=== PATIENT | female | born 2000 | race Caucasian/White ===

== ENCOUNTER 2021-06-30 09:52 | Observation (INO) | payer OTHER, SELFPAY ==
[2021-06-30] VITALS (17 sets, daily range): BP systolic 105–141; BP diastolic 54–100; PULSE 71–89; RESP 15–27; TEMP 36.6–37; O2SAT 99–100; BMI 24.9
--- NOTE | ~2021-06-30 | CT_ITS ---
EXAMINATION: CT abdomen pelvis w con EXAM DATE: 06/30/2021 13:33 INDICATION: intractable vomiting, abdominal pain TECHNIQUE: Spiral CT of the abdomen and pelvis was performed following intravenous injection of 100 m L Omnipaque 350. Axial, coronal and sagittal images of the abdomen and pelvis were reviewed. The do se-length product (DLP) for this examination was 273.65 mGy-cm. The exposure was tailored according to patient size (auto mA exposure control), and iterative reconstruction (ASIR) was used as additiona l dose reduction technique. There is no prior study for comparison. FINDINGS: Mild nonspecific periportal edema. Suspect mild gallbladder wall edema without adjacent fat stranding, which could be reactive given the periportal edema. No calcified cholelithiasis and only mild gallbladder distention. Differential diagnosis for gallbladder wall edema includes interstitial edema, liver disease, acute or chronic cholecystitis. Consider correlating with liver enzymes, hepati tis panel, ultrasound of this right upper quadrant tenderness. Portal and splenic veins are patent. Kidneys enhance symmetrically. There is no hydronephrosis. T he uterus is unremarkable. The bladder is unremarkable. There is no retroperitoneal or pelvic lymp hadenopathy. The appendix is normal. The stomach and small bowel are unremarkable. There is expected amount of c olonic stool. No free intraperitoneal gas. The heart is normal in size. There are no pericardial or pleural effusions. The lung bases are unremarkable. The bones are unremarkable. IMPRESSION: Mild periportal and gallbladder wall edema. Clinical correlation. Reviewed, dictated and finalized at location B.
--- NOTE | ~2021-06-30 | US_ITS ---
EXAMINATION: US abdomen limited DATE: 06/30/2021 14:26 INDICATION: Nausea. Gallbladder edema. TECHNIQUE: Multiple grayscale and Doppler ultrasound images of the abdomen were obtained. COMPARISON: CT abdomen and pelvis 06/30/2021 FINDINGS: The visualized portions of the head and body of the fingers are normal. The liver is normal without focal lesion. There is normal flow in main portal vein. The gallbladder is contracted. Gallb ladder wall thickening is noted. No gallstones or sonographic Campos sign. The common duct is normal and measures 2 mm. IMPRESSION: 1. Gallbladder wall thickening, likely interstitial edema. Reviewed, dictated and finalized at location A.
[2021-06-30] MEDS: SODIUM CHLORIDE 0.9% IV 1,000 ML 999 ML IV CONT ×2 (10:07→18:14)
[2021-06-30] MEDS: ONDANSETRON INJ 4 MG/2 ML VIAL IV PUSH ×2 (10:07→20:18)
[2021-06-30] MEDS: PANTOPRAZOLE SODIUM IV 40 MG VIAL IV PUSH (10:07)
[2021-06-30 10:15] LABS: Basophils Absolute Auto 0.2 K/mm3 (0.0-0.1); Basophils Percent Auto 1.3 % (0.2-1.2); Eosinophils Absolute Auto 1.3 K/mm3 (0-0.3); Eosinophils Percent Auto 11.2 % (0-4.4); Hematocrit 38.6 % (37.0-47.0); Hemoglobin 12.7 g/dL (12.0-15.0); Immature Granulocyte Absolute 0.03 K/mm3 (0.00-0.031); Immature Granulocyte Percent A 0.3 % (0-0.5); Lymphocytes Absolute Auto 2.52 K/mm3 (0.9-3.2); Lymphocytes Percent Auto 22.5 % (18.3-44.2); Mean Corpuscular HGB Conc 32.9 g/dl (32-36); Mean Corpuscular Hemoglobin 28.5 pg (26-34); Mean Corpuscular Volume 86.5 fl (80-100); Mean Platelet Volume 10.8 fl (7.4-10.4); Monocytes Absolute Auto 0.5 K/mm3 (0.1-0.6); Monocytes Percent Auto 4.6 % (2.6-8.5); Neutrophils Absolute Auto 6.7 K/mm3 (1.3-6.7); Neutrophils Percent Auto 60.1 % (45.5-73.1); Platelet Count Result 337 k/mm3 (150-375); Red Blood Count 4.46 M/mm3 (4.2-5.4); Red Cell Distribution Width 13.5 % (11.5-14.5); White Blood Count 11.2 K/mm3 (4.5-10.0)
[2021-06-30 10:16] LABS: Bilirubin Urine 1+ (Negative); Color Urine Yellow (Yellow); Glucose Urine UA Negative (Negative); Ketones Urine Trace mg/dL (Negative); Leukocyte Esterase Ur Negative LEU/UL (Negative); Nitrate Urine Negative (Negative); Protein Urine 1+ mg/dL (Negative); pH Urine >=9.0 (5.0-9.0)
[2021-06-30 10:17] LABS: Add Urine Microscopic? YES; Appearance Urine Sl Cloudy (Clear); Blood Urine Trace-Intact (Negative)
--- NOTE | 2021-06-30 10:30 | ED.NAVMDI ---
HPI - Nausea/Vomiting/Diarrhea General Chief complaint: Nausea/Vomiting/Diarrhea Stated complaint: nausea Time Seen by Provider: 06/30/21 09:56 Source: patient and RN notes reviewed Mode of arrival: ambulatory Limitations: no limitations History of Present Illness HPI Narrative: THis is a 21 year old female who presents for evaluation of nausea, vomiting, and diarrhea. Patient states this morning she started her menstrual cycle. She states when she starts she will develop diarrhea and vomiting. This morning she developed abdominal cramping with diarrhea. She soon after developed nausea and vomiting. She has been unable keep any fluids down. Related Data Home Medications Medication Instructions Recorded Confirmed No Home Medications 06/30/21 06/30/21 Allergies Allergy/AdvReac Type Severity Reaction Status Date / Time amoxicillin [From Augmentin] Allergy Hives Verified 06/30/21 10:05 clavulanic acid Allergy Hives Verified 06/30/21 10:05 [From Augmentin] Review of Systems Review of Systems: All systems reviewed & are unremarkable except as noted in HPI and below PMFSH Past Medical History Medical History (Updated 06/30/21 @ 16:15 by Sachi Whitt MD) Patient denies medical problems Surgical History Surgical History (Updated 06/30/21 @ 16:13 by Sachi Whitt MD) No pertinent past surgical history Family History Family History (Updated 06/30/21 @ 18:00 by Keely Rider RN) Grandparent Cerebrovascular accident Social History Social History (Updated 06/30/21 @ 16:13 by Sachi Whitt MD) Smoking status: Never smoker Second hand tobacco smoke exposure: Yes Alcohol intake: current Drinks per week: 1 Substance use type: marijuana and prescription drug Other substance usage details: naseem daily Spiritual care concerns: No Exam Const: General: no acute distress and alert Orientation/consciousness: patient oriented x3 Eyes: EOM: EOMs intact bilaterally Chest: Chest palpation & inspection: normal inspection of the chest Resp: Effort & Inspection: normal respiratory effort and no retractions Auscultation: clear to auscultation bilaterally Cardio: Rate: regular rate Rhythm: regular rhythm Heart sounds: no murmurs GI: Inspection: non-distended GI Palp: Yes Soft to palpation, Yes Tenderness to palpation present (GI) (diffuse), No Guarding due to palpation present (GI) and No Rigid due to palpation Auscultation: normal bowel sounds Skin: General skin exam: normal color Rashes: no rashes Neuro: General: patient oriented x3, moves all extremities and CN's II-XI intact bilaterally Extrem: General: normal to inspection Psych: Mental Status: mental status grossly normal Affect: normal affect Course Reevaluation(s) Reevaluation #1: Patient is still having nausea and vomiting despite multiple medications. I spoke with hospitalist service who will admit for IVF hydration and treatment. Patient is agreeable. Date: 06/30/21 Time: 16:13 Vital Signs Vital signs: Vital Signs Temperature 97.8 F 06/30/21 10:02 Pulse Rate 82 06/30/21 10:02 Respiratory Rate 20 06/30/21 10:02 Blood Pressure 140/100 H 06/30/21 10:02 Pulse Oximetry 100 06/30/21 10:02 Temperature 98.6 F 06/30/21 18:40 Pulse Rate 87 06/30/21 18:40 Respiratory Rate 16 06/30/21 18:40 Blood Pressure 141/86 H 06/30/21 18:40 Pulse Oximetry 100 06/30/21 18:40 MDM - Nausea/Vomiting/Diarrhea Lab Data Attestation: I reviewed the patient's lab results. Result diagrams: 06/30/21 10:07 06/30/21 10:06 Labs: Lab Results 06/30/21 06/30/21 06/30/21 Range/Units 10:06 10:07 10:07 WBC 11.2 H (4.5-10.0) K/mm3 RBC 4.46 (4.2-5.4) M/mm3 Hgb 12.7 (12.0-15.0) g/dL Hct 38.6 (37.0-47.0) % MCV 86.5 (80-100) fl MCH 28.5 (26-34) pg MCHC 32.9 (32-36) g/dl RDW 13.5 (11.5-14.5) % Plt Count 337 (150-375) k/mm3
[2021-06-30 10:31] LABS: Mucus Urine Heavy /lpf; Squamous Epithelial Cell Urine Few /hpf (Few); WBC Urine 0-3 /hpf
[2021-06-30 10:31] LABS: Alanine Aminotransferase 18 U/L (4-35); Albumin Level 5.1 g/dL (3.5-5.1); Alkaline Phosphatase 67 U/L (38-126); Anion Gap 13 mmol/L (8-16); Aspartate Amino Transferase 28 U/L (14-36); Bilirubin,Total 0.6 mg/dL (0.2-1.3); Blood Urea Nitrogen 10 mg/dL (7-17); Calcium 9.4 mg/dL (8.4-10.2); Carbon Dioxide 19 mmol/L (22-30); Chloride 107 mmol/L (98-107); Estimated CRCL calculation 88 ml/min; Estimated Glomerular Filt Rate > 60; Glucose 142 mg/dL (65-110); Lipase 82 U/L (23-300); Potassium 3.3 mmol/L (3.4-5.0); Sodium 139 mmol/L (137-145)
--- NOTE | 2021-06-30 11:20 | PC.NURSE ---
pt continues to c/o abd pain and nausea.
[2021-06-30] MEDS: METOCLOPRAMIDE HCL INJ 10 MG/2 ML VIAL IV PUSH (11:24)
[2021-06-30] MEDS: PROMETHAZINE HCL 25 MG/ML AMPUL 12.5 MG IV PUSH ×2 (12:16→13:38)
--- NOTE | 2021-06-30 15:15 | PM.IMHP ---
H&P: HPI History of Present Illness Date/Time: 06/30/21 15:15 Chief Complaint: Nausea, vomiting, diarrhea. Narrative: This is a 21-year-old female without significant medical history presented to the emergency department via private vehicle for evaluation of nausea, vomiting, and diarrhea. She started her menstrual cycle this morning and had mild abdominal cramping upon waking. Shortly thereafter she began to feel nauseated and she has had intractable vomiting since that time. She also reports having two loose stools this morning which is not unusual for her when she starts her cycle. She describes nonbloody emesis that is yellow in color and very bitter to taste. Unfortunately she continues to vomit and have dry heaves by receiving aggressive IV fluid rehydration and several different antiemetics in the ER, and she is being admitted for further care. With further questioning she does admit to having similar symptoms in the past requiring hospitalization. She smokes marijuana daily and she has been told previously that these episodes may be related to her marijuana use. Currently she feels weak and dehydrated and reports feeling anxious. She denies fever, chills, sweats, sick contacts, cold and flu symptoms, hematemesis, melena, and hematochezia. She has no history of GERD, peptic ulcers, gallbladder disease, or pancreatitis. Review of Systems Review of Systems: Twelve systems were reviewed and are negative except for as per HPI. [facility]LY [facility] Past Medical History Medical History Patient denies medical problems Surgical History Surgical History No pertinent past surgical history Family History Family History Grandparent Cerebrovascular accident Social History Social History (Updated 06/30/21 @ 22:00 by Kourtney Jeronimo PA-C) Social History: Surrogate decision maker: Sonja Gomez, grandmother. Code status: Full code. Smoking status: Never smoker Second hand tobacco smoke exposure: Yes Alcohol intake: current Drinks per week: 1 Substance use type: marijuana Other substance usage details: Marijuana daily. Additional living arrangements comments: The patient lives with her boyfriend and his family in [place]. 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 Spiritual care concerns: No Meds Home Medications and Allergies Home Medications Medication Instructions Recorded Confirmed Type No Home Medications 06/30/21 06/30/21 History Allergies Allergy/AdvReac Type Severity Reaction Status Date / Time amoxicillin [From Augmentin] Allergy Hives Verified 06/30/21 10:05 clavulanic acid Allergy Hives Verified 06/30/21 10:05 [From Augmentin] Vital Signs Vital Signs - 24 hr 06/30/21 10:02 06/30/21 11:00 06/30/21 13:39 Temperature 97.8 F Pulse Rate 82 71 86 Respiratory Rate 20 16 16 Blood Pressure 140/100 H 105/54 L 123/70 Pulse Oximetry 100 06/30/21 16:10 06/30/21 16:11 06/30/21 16:15 Temperature Pulse Rate 85 87 89 Respiratory Rate 24 H 18 23 H Blood Pressure 130/72 Pulse Oximetry 06/30/21 16:16 06/30/21 16:30 06/30/21 16:31 Temperature Pulse Rate 84 78 74 Respiratory Rate 15 24 H 19 Blood Pressure 119/71 132/70 Pulse Oximetry 06/30/21 16:45 06/30/21 17:00 06/30/21 17:23 Temperature Pulse Rate 82 76 83 Respiratory Rate 27 H 22 H 17 Blood Pressure Pulse Oximetry 06/30/21 17:38 06/30/21 18:40 06/30/21 20:00 Temperature 98.6 F Pulse Rate 76 87 87 Respiratory Rate 16 16 16 Blood Pressure 124/75 141/86 H Pulse Oximetry 100 100 06/30/21 20:26 Temperature Pulse Rate Respiratory Rate Blood Pressure Pulse Oximetry 99 Exam Narrative: General: Mildly ill-appearing female lying in bed. Weight: 68 kg. BMI: 2
--- NOTE | 2021-06-30 15:45 | PC.NURSE ---
pt able to tolerate ice chips
--- NOTE | 2021-06-30 17:45 | PC.NURSE ---
This patient, Kailyn Vinson, was admitted to Medical Room 251-01. Patient/family oriented to hospital policies and general routines including ID bracelet, bed and alarms, visiting hours, pain management, procedures, bathroom and other care routines, personal items, smoking policy, room service/diet, and visiting hours. Information on how to activate the Rapid Response Team has been discussed. Patient/Family are encouraged to report perceived risks to care and to ask questions if they do not understand what they are told or what they should do.
[2021-06-30] MEDS: SODIUM CHLORIDE 0.9% IV 1,000 ML 125 ML IV CONT (20:17)
[2021-06-30 21:59] LABS: Hepatitis B Surface Antigen Negative (Negative)
[2021-06-30 22:05] LABS: HAV RESULT Negative (Negative); Hepatitis B Core IgM Result Negative (Negative)
[2021-06-30 22:17] LABS: Hepatitis C Virus Antibody Negative (Negative)
[2021-06-30 22:25] LABS: Anion Gap 10 mmol/L (8-16); Blood Urea Nitrogen 7 mg/dL (7-17); Calcium 8.8 mg/dL (8.4-10.2); Carbon Dioxide 20 mmol/L (22-30); Chloride 108 mmol/L (98-107); Estimated CRCL calculation 119 ml/min; Estimated Glomerular Filt Rate > 60; Glucose 126 mg/dL (65-110); Magnesium 1.5 mg/dL (1.6-2.3); Potassium 3.7 mmol/L (3.4-5.0); Sodium 138 mmol/L (137-145)
[2021-06-30 23:01] LABS: Hemoglobin A1C 5.1 % (<5.7)
[2021-07-01] MEDS: MAGNESIUM SULF 2 GM/WATER 50ML 2 GM/50 ML BAG IVPB (01:10)
[2021-07-01] MEDS: LACTATED RINGERS 1,000 ML 100 ML IV CONT (01:11)
[2021-07-01] MEDS: ONDANSETRON INJ 4 MG/2 ML VIAL IV PUSH (02:22)
[2021-07-01 05:42] LABS: Basophils Percent Auto 0.3 % (0.2-1.2); Hematocrit 33.5 % (37.0-47.0); Hemoglobin 11.2 g/dL (12.0-15.0); Immature Granulocyte Absolute 0.09 K/mm3 (0.00-0.031); Immature Granulocyte Percent A 0.6 % (0-0.5); Lymphocytes Absolute Auto 2.18 K/mm3 (0.9-3.2); Lymphocytes Percent Auto 14.7 % (18.3-44.2); Mean Corpuscular HGB Conc 33.4 g/dl (32-36); Mean Corpuscular Hemoglobin 28.6 pg (26-34); Mean Corpuscular Volume 85.7 fl (80-100); Monocytes Absolute Auto 0.9 K/mm3 (0.1-0.6); Monocytes Percent Auto 6.3 % (2.6-8.5); Neutrophils Absolute Auto 11.6 K/mm3 (1.3-6.7); Neutrophils Percent Auto 78.1 % (45.5-73.1); Platelet Count Result 292 k/mm3 (150-375); Red Blood Count 3.91 M/mm3 (4.2-5.4); Red Cell Distribution Width 13.9 % (11.5-14.5); White Blood Count 14.8 K/mm3 (4.5-10.0)
[2021-07-01 05:53] LABS: Alanine Aminotransferase 17 U/L (4-35); Albumin Level 4.3 g/dL (3.5-5.1); Alkaline Phosphatase 49 U/L (38-126); Anion Gap 10 mmol/L (8-16); Aspartate Amino Transferase 25 U/L (14-36); Bilirubin,Total 0.4 mg/dL (0.2-1.3); Blood Urea Nitrogen 6 mg/dL (7-17); Calcium 8.6 mg/dL (8.4-10.2); Carbon Dioxide 21 mmol/L (22-30); Chloride 107 mmol/L (98-107); Estimated CRCL calculation 119 ml/min; Estimated Glomerular Filt Rate > 60; Glucose 104 mg/dL (65-110); Potassium 3.8 mmol/L (3.4-5.0); Sodium 138 mmol/L (137-145)
[2021-07-01 06:00] VITALS: BP 106/66; PULSE 70; RESP 21; TEMP 36.3; O2SAT 100
[2021-07-01 06:05] VITALS: PULSE 71; RESP 21; TEMP 36.3; O2SAT 100
[2021-07-01 06:10] VITALS: PULSE 82; RESP 21; TEMP 36.2; O2SAT 100
[2021-07-01] MEDS: PANTOPRAZOLE SODIUM IV 40 MG VIAL IV PUSH (07:37)
[2021-07-01 13:07] VITALS: BMI 24.5
--- NOTE | 2021-07-01 13:39 | PCNSR ---
On 07/01/21, the student, Jessica Vernon, provided care and completed [facility] documentation on this patient. I have reviewed the student's documentation and agree with the findings.
[2021-07-01 14:36] VITALS: BP 119/64; PULSE 74; RESP 16; TEMP 36.6; O2SAT 100
--- NOTE | 2021-07-01 15:33 | PM.DS ---
DS: Admitting Diagnosis Discharge Date 07/01/2021 Admitting Diagnosis nausea and vomiting DS: Discharge Diagnosis Discharge Diagnosis (1) Intractable vomiting with nausea: Code(s): R11.2 - Nausea with vomiting, unspecified Status: Acute Assessment and Plan: Presented with persistent nausea and vomiting, did not resolve with rehydration antiemetics therefore patient was admitted. She has had prior episodes with similar presentations, may very well be related to cyclic vomiting syndrome/cannabinoid hyperemesis syndrome. Following rehydration, she had improvement and was able to advance to a bland diet. (2) Cyclic vomiting syndrome: Code(s): R11.15 - Cyclical vomiting syndrome unrelated to migraine Status: Acute Assessment and Plan: Suspected cyclic vomiting syndrome/cannabinoid hyperemesis syndrome. Patient reports she has been informed of this in the past. Recommended reduction in marijuana use. (3) Abnormal computed tomography of abdomen and pelvis: Code(s): R93.5 - Abnormal findings on diagnostic imaging of other abdominal regions, including retroperitoneum Status: Acute Assessment and Plan: Mild periportal and gallbladder wall edema; abdominal ultrasound showed gallbladder wall thickening, likely interstitial edema. She was asymptomatic with this. Reviewed case with General Surgery. At this time, no indication for any further evaluation/intervention. Discussed with the patient signs and symptoms of acute cholecystitis, informed that she should seek medical care if she experiences this. Recommended low-fat diet to help prevent trigger of any symptoms (4) Hypokalemia: Code(s): E87.6 - Hypokalemia Status: Acute Assessment and Plan: Secondary to vomiting/decreased p.o. intake. Potassium was 3.3 and was supplemented. Levels normalized. (5) Elevated blood pressure reading: Code(s): R03.0 - Elevated blood-pressure reading, without diagnosis of hypertension Status: Acute Assessment and Plan: She had an elevated blood pressure reading on presentation but subsequent blood pressures were well controlled. Likely related to anxiety DS: Summary Hospital Course Hospital Course: Date of admission: 06/30/2021 Date of discharge: 07/01/2021 Kailyn Vinson is a healthy 21 year old female who presented to the emergency department on 06/30/2021 with complaints of nausea and vomiting. She was admitted to the hospitalist service for further evaluation management. Please see above for further details. Nausea and vomiting resolved and she was able to advance her diet. She was feeling significantly improved and requested discharge home. Given her overall improvement, she was determined to no longer require inpatient care and was discharged in hemodynamically stable condition on 07/01/2021. She does not have a primary care provider, and I discussed with her the importance of establishing care and following up regarding this hospital stay. Discussed worrisome signs and symptoms for which to return. Status at Discharge Functional status at discharge: independent ambulation Overall status at discharge: patient is back to baseline Time Spent with Patient Time attestation: Total time spent providing and/or coordinating discharge services: 35 minutes Time spent: Greater than 30 minutes Exam Narrative: General: thin, well-appearing 21 year-old female, sitting up in bed eating lunch, comfortable, NARD Neuro: awake, alert and oriented x4, speech clear, no focal neuro deficits noted HEENMT: normocephalic, atraumatic, EOMI, sclerae anicteric, moist oral mucosa Respiratory: clear to auscultation bilaterally, nonlabored breathing Cardio: regular rate, regular rhythm with S1-S2 Abdomen: nondistended, normoactive bowel sounds, soft, nontender to palpation, no RUQ tenderness, Campos sign negative Extremities: no edema, erythema, or tenderne
== END 2021-07-01 15:50 | disposition home or self-care (01) ==
LOC: ANHED 16:15 → ANH2MED 16:53
PROVIDERS: Physician Assistant; Admitting Provider Family Medicine; Emergency Provider General Practice; Visit Provider Family Medicine
DX: R11.2 Nausea with vomiting, unspecified (principal); E87.6 Hypokalemia; F12.90 Cannabis use, unspecified, uncomplicated
CPT/HCPCS: 36415; 74177; 76705; 80048; 80053; 80074; 81001; 81025; 83036; 83690; 83735; 85025; 96361; 96374; 96375; 96376; 99285; C9113; G0378; G0379; J0131; J2405; J2550; J2765; J3475; J7030; J7120; Q9967

== ENCOUNTER 2021-08-05 08:23 | Emergency (ER) | payer OTHER, SELFPAY ==
[2021-08-05 08:29] VITALS: BP 106/37; PULSE 76; RESP 18; TEMP 36.2; O2SAT 99
--- NOTE | 2021-08-05 08:44 | ED.NAVMDI ---
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 Patient does not remember when the last time she had marijuana probably last night and this morning. History of similar symptoms a few weeks ago with a diagnosis of marijuana induced vomiting. She denies any fever, chills, abdominal pain, back pain, urinary symptoms Related Data Allergies Allergy/AdvReac Type Severity Reaction Status Date / Time amoxicillin [From Augmentin] Allergy Hives Verified 06/30/21 10:05 clavulanic acid Allergy Hives Verified 06/30/21 10:05 [From Augmentin] Review of Systems Review of Systems: All systems reviewed & are unremarkable except as noted in HPI and below PMFSH Past Medical History Medical History Patient denies medical problems Surgical History Surgical History No pertinent past surgical history Family History Family History Grandparent Cerebrovascular accident Social History Social History Social History: Surrogate decision maker: Sonja Gomez, grandmother. Code status: Full code. Smoking status: Never smoker Second hand tobacco smoke exposure: Yes Alcohol intake: current Drinks per week: 1 Substance use type: marijuana Other substance usage details: Marijuana daily. Additional living arrangements comments: The patient lives with her boyfriend and his family in [place]. 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 Spiritual care concerns: No Exam Narrative: General appearance: Well-developed, well-nourished, looks ill Skin: Pale Head: Normocephalic, nontraumatic Eyes: Clear conjunctiva ENT: Oropharynx normal, ears normal, nose normal Neck: Supple, nontender Chest and respiratory: Airway patent, no respiratory distress, no accessory muscle use Heart: Regular rate/rhythm Abdomen: Soft, mild tenderness of epigastric area, no guarding or rebound no organomegaly, quiet bowel sounds Vascular: Normal peripheral pulses, normal capillary refill. Musculoskeletal: Normal range of motion, nontender back Neurologic: Alert and oriented ?3, MEDICAL SOCIOLOGIST is normal as tested, no gross motor deficit Course Vital Signs Vital signs: Vital Signs Temperature 36.2 C L 08/05/21 08:29 Pulse Rate 76 08/05/21 08:29 Respiratory Rate 18 08/05/21 08:29 Blood Pressure 106/37 L 08/05/21 08:29 Pulse Oximetry 99 08/05/21 08:29 Temperature 36.2 C L 08/05/21 08:29 Pulse Rate 76 08/05/21 08:29 Respiratory Rate 18 08/05/21 08:29 Blood Pressure 106/37 L 08/05/21 08:29 Pulse Oximetry 99 08/05/21 08:29 MDM - Nausea/Vomiting/Diarrhea Lab Data Result diagrams: 08/05/21 09:02 08/05/21 09:02 Labs: Lab Results 08/05/21 08/05/21 08/05/21 Range/Units 09:02 09:02 09:13 WBC 15.4 H (4.5-10.0) K/mm3 RBC 4.66 (4.2-5.4) M/mm3 Hgb 13.2 (12.0-15.0) g/dL Hct 40.5 (37.0-47.0) % MCV 86.9 (80-100) fl MCH 28.3 (26-34) pg MCHC 32.6 (32-36) g/dl RDW 13.0 (11.5-14.5) % Plt Count 292 (150-375) k/mm3 MPV 11.7 H (7.4-10.4) fl Immature Gran % (
[2021-08-05 09:22] LABS: Appearance Urine Slightly Cloudy (Clear); Bilirubin Urine Negative (Negative); Blood Urine Negative (Negative); Color Urine Yellow (Yellow); Glucose Urine UA Negative (Negative); Ketones Urine 4+ mg/dL (Negative); Leukocyte Esterase Ur Negative LEU/UL (Negative); Nitrate Urine Negative (Negative); Protein Urine 1+ mg/dL (Negative); Urobilinogen Urine 0.2 mg/dL (<2.0); pH Urine >=9.0 (5.0-9.0)
[2021-08-05 09:28] LABS: Bacteria Urine Trace /hpf; Mucus Urine Moderate /lpf; Squamous Epithelial Cell Urine Few /hpf (Few); WBC Urine 0-3 /hpf
[2021-08-05 09:29] LABS: Add Urine Microscopic? YES
[2021-08-05 09:38] LABS: Basophils Absolute Auto 0.1 K/mm3 (0.0-0.1); Basophils Percent Auto 0.8 % (0.2-1.2); Eosinophils Percent Auto 6.4 % (0-4.4); Hematocrit 40.5 % (37.0-47.0); Hemoglobin 13.2 g/dL (12.0-15.0); Immature Granulocyte Absolute 0.13 K/mm3 (0.00-0.031); Immature Granulocyte Percent A 0.8 % (0-0.5); Lymphocytes Absolute Auto 2.38 K/mm3 (0.9-3.2); Lymphocytes Percent Auto 15.5 % (18.3-44.2); Mean Corpuscular HGB Conc 32.6 g/dl (32-36); Mean Corpuscular Hemoglobin 28.3 pg (26-34); Mean Corpuscular Volume 86.9 fl (80-100); Mean Platelet Volume 11.7 fl (7.4-10.4); Monocytes Absolute Auto 0.3 K/mm3 (0.1-0.6); Monocytes Percent Auto 2.2 % (2.6-8.5); Neutrophils Absolute Auto 11.4 K/mm3 (1.3-6.7); Neutrophils Percent Auto 74.3 % (45.5-73.1); Platelet Count Result 292 k/mm3 (150-375); Red Blood Count 4.66 M/mm3 (4.2-5.4); White Blood Count 15.4 K/mm3 (4.5-10.0)
[2021-08-05 09:48] LABS: Alanine Aminotransferase 19 U/L (6-35); Albumin Level 4.8 g/dL (3.5-5.1); Alkaline Phosphatase 69 U/L (38-126); Anion Gap 16 mmol/L (8-16); Aspartate Amino Transferase 34 U/L (14-36); Bilirubin,Total 0.2 mg/dL (0.2-1.3); Blood Urea Nitrogen 8 mg/dL (7-17); Calcium 9.5 mg/dL (8.4-10.2); Carbon Dioxide 17 mmol/L (22-30); Chloride 106 mmol/L (98-107); Estimated CRCL calculation 119 ml/min; Estimated Glomerular Filt Rate > 60; Glucose 212 mg/dL (65-110); Lipase 67 U/L (23-300); Potassium 3.1 mmol/L (3.4-5.0); Sodium 139 mmol/L (137-145)
[2021-08-05] MEDS: SODIUM CHLORIDE 0.9% IV 1,000 ML 999 ML IV CONT ×2 (10:02→11:29)
[2021-08-05] MEDS: diphenhydrAMINE HCl INJ 50 MG/ML VIAL IV PUSH (10:03)
[2021-08-05] MEDS: ONDANSETRON INJ 4 MG/2 ML VIAL IV PUSH (10:04)
[2021-08-05] MEDS: METOCLOPRAMIDE HCL INJ 10 MG/2 ML VIAL IV PUSH (10:04)
[2021-08-05] MEDS: LORazepam INJ (*CRX) 2 MG/ML VIAL 1 MG IV PUSH (11:29)
[2021-08-05 11:36] VITALS: BP 112/77; PULSE 87; RESP 18; O2SAT 99
[2021-08-05 12:59] VITALS: BP 108/68; PULSE 85; RESP 18; O2SAT 99
== END 2021-08-05 13:05 | disposition home or self-care (01) ==
PROVIDERS: Emergency Provider Emergency Medicine
DX: R11.2 Nausea with vomiting, unspecified (principal); F12.10 Cannabis abuse, uncomplicated
CPT/HCPCS: 36415; 80053; 81001; 81025; 83690; 85025; 96361; 96374; 96375; 99284; J1200; J2060; J2405; J2765; J7030

== ENCOUNTER 2021-08-07 18:05 | Emergency (ER) | payer OTHER, SELFPAY ==
[2021-08-07] VITALS (7 sets, daily range): BP systolic 122–138; BP diastolic 86–103; PULSE 68–85; RESP 10–27; TEMP 36.6; O2SAT 98–100
[2021-08-07] MEDS: SODIUM CHLORIDE 0.9% IV 1,000 ML 999 ML IV CONT (18:45)
[2021-08-07] MEDS: ONDANSETRON INJ 4 MG/2 ML VIAL IV PUSH (18:46)
[2021-08-07] MEDS: PANTOPRAZOLE SODIUM IV 40 MG VIAL IV PUSH (18:46)
--- NOTE | 2021-08-07 18:54 | ED.NAVMDI ---
HPI - Nausea/Vomiting/Diarrhea General Chief complaint: Nausea/Vomiting/Diarrhea Stated complaint: Nausea/Vomiting Due to Marijuana Time Seen by Provider: 08/07/21 18:22 Source: patient and RN notes reviewed Mode of arrival: ambulatory Limitations: no limitations History of Present Illness HPI Narrative: This is a female who presents for evaluation of nausea and vomiting. Patient states she has had similar episodes in the past and she has been diagnosed with cannabis induced hyperemesis. She was evaluated for symptoms 2 days ago. She states she did not believe marijuana was due the cause of her symptoms so she decided to smoke again yesterday. She developed nausea, vomiting and diarrhea 2 hours ago. She also reports nonradiated upper abdominal pain. She denies fever, chills. She does report feeling lightheaded. Related Data Allergies Allergy/AdvReac Type Severity Reaction Status Date / Time amoxicillin [From Augmentin] Allergy Hives Verified 08/07/21 18:49 clavulanic acid Allergy Hives Verified 08/07/21 18:49 [From Augmentin] Review of Systems Review of Systems: All systems reviewed & are unremarkable except as noted in HPI and below Constitutional: Constitutional: Denies chills and Denies fever(s) Cardiovascular: Cardiovascular: Denies chest pain Respiratory: Respiratory: Denies cough and Denies dyspnea Gastrointestinal: Gastrointestinal: Reports abdominal pain, Reports diarrhea, Reports nausea and Reports vomiting Genitourinary: Genitourinary: Denies hematuria and Denies flank pain PMFSH Past Medical History Medical History (Updated 08/07/21 @ 21:42 by Sachi Whitt MD) Cyclic vomiting syndrome Surgical History Surgical History No pertinent past surgical history Family History Family History Grandparent Cerebrovascular accident Social History Social History Social History: Surrogate decision maker: Sonja Gomez, grandmother. Code status: Full code. Smoking status: Never smoker Second hand tobacco smoke exposure: Yes Alcohol intake: current Drinks per week: 1 Substance use type: marijuana Other substance usage details: Marijuana daily. Additional living arrangements comments: The patient lives with her boyfriend and his family in [place]. 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 Spiritual care concerns: No Exam Const: General: no acute distress and alert Orientation/consciousness: patient oriented x3 Eyes: EOM: EOMs intact bilaterally Resp: Effort & Inspection: normal respiratory effort and no retractions Auscultation: clear to auscultation bilaterally Cardio: Rate: regular rate Rhythm: regular rhythm Heart sounds: no murmurs GI: GI Palp: Yes Soft to palpation, No Tenderness to palpation present (GI) and No Guarding due to palpation present (GI) Auscultation: normal bowel sounds Back/Spine/Pelvis: Back: no CVA tenderness Skin: General skin exam: normal color Rashes: no rashes Neuro: General: patient oriented x3, moves all extremities and CN's II-XI intact bilaterally Psych: Mental Status: mental status grossly normal Affect: normal affect Course Reevaluation(s) Reevaluation #1: This appears to be patient's cyclic vomiting/cannabis induced hyperemesis . She states she feels much better. She is drinking orange juice with potassium mixture. She denies nausea or vomiting. I Discussed discharge and follow up . Date: 08/07/21 Time: 21:39 Vital Signs Vital signs: Vital Signs Temperature 97.9 F 08/07/21 18:12 Pulse Rate 85 08/07/21 18:12 Respiratory Rate 19 08/07/21 18:12 Blood Pressure 138/103 H 08/07/21 18:12 Pulse Oximetry 100 08/07/21 18:12 Temperature 97.9 F 08/07/21 18:12 Pulse Rate 73 08/07/21 21:45 Respiratory Ra
[2021-08-07 19:02] LABS: Basophils Absolute Auto 0.1 K/mm3 (0.0-0.1); Eosinophils Absolute Auto 0.2 K/mm3 (0-0.3); Eosinophils Percent Auto 2.2 % (0-4.4); Hematocrit 37.5 % (37.0-47.0); Hemoglobin 12.4 g/dL (12.0-15.0); Immature Granulocyte Absolute 0.04 K/mm3 (0.00-0.031); Immature Granulocyte Percent A 0.4 % (0-0.5); Lymphocytes Absolute Auto 2.51 K/mm3 (0.9-3.2); Lymphocytes Percent Auto 23.1 % (18.3-44.2); Mean Corpuscular HGB Conc 33.1 g/dl (32-36); Mean Corpuscular Hemoglobin 28.4 pg (26-34); Mean Platelet Volume 11.7 fl (7.4-10.4); Monocytes Absolute Auto 0.5 K/mm3 (0.1-0.6); Monocytes Percent Auto 4.6 % (2.6-8.5); Neutrophils Absolute Auto 7.5 K/mm3 (1.3-6.7); Neutrophils Percent Auto 68.7 % (45.5-73.1); Platelet Count Result 261 k/mm3 (150-375); Red Blood Count 4.36 M/mm3 (4.2-5.4); White Blood Count 10.9 K/mm3 (4.5-10.0)
[2021-08-07 19:15] LABS: Appearance Urine Clear (Clear); Bilirubin Urine Negative (Negative); Blood Urine Negative (Negative); Color Urine Yellow (Yellow); Glucose Urine UA Negative (Negative); Ketones Urine 4+ mg/dL (Negative); Leukocyte Esterase Ur Negative LEU/UL (Negative); Nitrate Urine Negative (Negative); Protein Urine Negative (Negative); Specific Grav Ur 1.025 (1.001-1.035); pH Urine 7.5 (5.0-9.0)
[2021-08-07 19:29] LABS: Add Urine Microscopic? NO
[2021-08-07 19:33] LABS: Alanine Aminotransferase 21 U/L (6-35); Albumin Level 4.5 g/dL (3.5-5.1); Alkaline Phosphatase 57 U/L (38-126); Anion Gap 15 mmol/L (8-16); Aspartate Amino Transferase 29 U/L (14-36); Bilirubin,Total 0.6 mg/dL (0.2-1.3); Blood Urea Nitrogen 9 mg/dL (7-17); Calcium 9.4 mg/dL (8.4-10.2); Carbon Dioxide 19 mmol/L (22-30); Chloride 107 mmol/L (98-107); Estimated CRCL calculation 114 ml/min; Estimated Glomerular Filt Rate > 60; Glucose 122 mg/dL (65-110); Lipase 79 U/L (23-300); Sodium 141 mmol/L (137-145)
--- NOTE | 2021-08-07 19:33 | ECG_ITS ---
Measurements Intervals [place] Rate: 74 P: [place]: 0 QRS: 68 QRSD: 89 T: 12 QT: 358 QTc: 400 Interpretive Statements SINUS RHYTHM WITH SINUS ARRHYTHMIA BORDERLINE ST-T WAVE ABNORMALITY- INFERIOR LEADS BASELINE ARTIFACT- I, II, III, AVR, AVL, AVF BORDERLINE ECG Electronically Signed On 08-08-2021 7:52:21 CDT by Jose Albarran D.O.
[2021-08-07] MEDS: HALOPERIDOL LACTATE 5 MG/ML VIAL IM (20:00)
[2021-08-07] MEDS: LACTATED RINGERS 1,000 ML 999 ML IV CONT (20:50)
--- NOTE | 2021-08-07 21:07 | PC.NURSE ---
Talked to Naheed in lab at 21:08 to add on MG
[2021-08-07] MEDS: POTASSIUM CHLORIDE 20 MEQ PACKET (FOR LIQUID) 40 MEQ PO (21:10)
[2021-08-07 21:18] LABS: Magnesium 1.6 mg/dL (1.6-2.3)
== END 2021-08-07 22:21 | disposition home or self-care (01) ==
PROVIDERS: Emergency Provider General Practice
DX: R11.15 Cyclical vomiting syndrome unrelated to migraine (principal); E87.6 Hypokalemia; E86.0 Dehydration; R94.31 Abnormal electrocardiogram [ECG] [EKG]
CPT/HCPCS: 36415; 80053; 81003; 81025; 83690; 83735; 85025; 93005; 96361; 96372; 96374; 96375; 99284; A9270; C9113; J1630; J2405; J7030; J7120

== ENCOUNTER 2021-08-19 08:24 | Outpatient (CLI) | payer OTHER, SELFPAY ==
[2021-08-19 08:58] LABS: Hematocrit 41.7 % (37.0-47.0); Hemoglobin 13.4 g/dL (12.0-15.0); Mean Corpuscular HGB Conc 32.1 g/dl (32-36); Mean Corpuscular Hemoglobin 28.2 pg (26-34); Mean Corpuscular Volume 87.8 fl (80-100); Mean Platelet Volume 10.9 fl (7.4-10.4); Platelet Count Result 290 k/mm3 (150-375); Red Blood Count 4.75 M/mm3 (4.2-5.4); Red Cell Distribution Width 13.2 % (11.5-14.5); White Blood Count 7.2 K/mm3 (4.5-10.0)
[2021-08-19 09:10] LABS: Alanine Aminotransferase 14 U/L (6-35); Albumin Level 4.9 g/dL (3.5-5.1); Alkaline Phosphatase 50 U/L (38-126); Anion Gap 7 mmol/L (8-16); Aspartate Amino Transferase 24 U/L (14-36); Bilirubin,Total 0.5 mg/dL (0.2-1.3); Blood Urea Nitrogen 12 mg/dL (7-17); Calcium 9.5 mg/dL (8.4-10.2); Carbon Dioxide 28 mmol/L (22-30); Chloride 104 mmol/L (98-107); Estimated Glomerular Filt Rate > 60; Glucose 103 mg/dL (65-110); Sodium 139 mmol/L (137-145)
== END 2021-08-19 08:25 | disposition home or self-care (01) ==
LOC: ANHLAB 08:26
PROVIDERS: PCP Emergency Medicine; Visit Provider Emergency Medicine
DX: D72.829 Elevated white blood cell count, unspecified (principal); E87.6 Hypokalemia
CPT/HCPCS: 36415; 80053; 84439; 84443; 85027

== ENCOUNTER 2021-08-20 15:52 | Inpatient (IN) | payer OTHER, SELFPAY ==
[2021-08-20] VITALS (15 sets, daily range): BP systolic 127–142; BP diastolic 74–103; PULSE 92–112; RESP 14–21; TEMP 36.1–36.4; O2SAT 98–100; BMI 22.4
--- NOTE | ~2021-08-20 | NM_ITS ---
. EXAMINATION: NM hepatobiliary w pharm DATE: 08/23/2021 15:06 INDICATION: Right upper quadrant abdominal pain. COMPARISON: CT abdomen and pelvis 08/20/2021 TECHNIQUE: 4.2 mCi Tc-99m mebrofenin (Choletec) was administered intravenously. Scintigraphic images of the abdomen were obtained for one hour. Then, 1.3 mcg sincalide (Kinevac) IV was administered, an d imaging was continued for 30 minutes. FINDINGS: There is normal clearance of radiotracer from the blood pool. There is homogeneous tracer u ptake by the liver. Activity progresses to the bowel and gallbladder. Gallbladder ejection fraction (GBEF) was 70%. Note that most patients with gallbladder dysfunction have GBEF < 35%, which overlaps with the broad normal range of 10-90%. IMPRESSION: 1. Normal hepatobiliary scintigraphy. Reviewed, dictated and finalized at location A.
--- NOTE | ~2021-08-20 | XR_ITS ---
EXAM: XR abdomen NG/feed tube insert DATE: 08/22/2021 15:22 HISTORY: NG tube placed . COMPARISON: None available. FINDINGS: NG tube, tip and side port project over the stomach. Clear lung bases. Normal partially vi sualized bowel gas pattern. No organomegaly. No abnormal abdominal calcification. Regional bones and soft tissues normal for age. IMPRESSION: NG tube, in good position. Reviewed, dictated and finalized at location K. IMPRESSION: NG tube, in good position.
--- NOTE | ~2021-08-20 | US_ITS ---
EXAMINATION: US abdomen limited DATE: 08/20/2021 18:09 INDICATION: Right upper quadrant pain TECHNIQUE: Multiple grayscale and Doppler ultrasound images of the abdomen were obtained. COMPARISON: 06/30/2021 FINDINGS: The head and body of the pancreas are normal. The pancreatic tail is obscured by bowel gas. The liver is normal with normal echogenicity and echotexture. No surface nodularity. Normal hepatope bk flow in the main portal vein. The gallbladder is normal with no abnormal wall thickening, pericho lecystic fluid or stones. The normal common bile duct measures 2 mm. There was no sonographic Campos sign. IMPRESSION: 1. Normal sonographic study of the gallbladder. Reviewed, dictated and finalized at location F.
--- NOTE | ~2021-08-20 | CT_ITS ---
EXAMINATION: CT abdomen pelvis wo con DATE: 08/20/2021 18:56 INDICATION: Abdominal pain TECHNIQUE: Computed tomography (CT) of the abdomen and pelvis was performed without intravenous contr ast. The dose-length product (DLP) was 202.74 mGy-cm. Automated exposure control and iterative recons truction technique were employed. COMPARISON: 06/30/2021 FINDINGS: The lung bases are clear. The heart size is normal. The liver, spleen, pancreas, gallbladde r, and adrenal glands are normal. The kidneys are unremarkable. No pathologically enlarged abdominal or pelvic lymph nodes are identified. There is no free intraperitoneal gas or evidence of bowel obstr uction. The appendix is not definitely identified. There is mild lumbar spondylosis. IMPRESSION: 1. No CT correlate for the patient's symptoms. Reviewed, dictated and finalized at location F.
[2021-08-20 17:00] LABS: Basophils Absolute Auto 0.1 K/mm3 (0.0-0.1); Basophils Percent Auto 0.5 % (0.2-1.2); Eosinophils Percent Auto 0.1 % (0-4.4); Hematocrit 40.5 % (37.0-47.0); Hemoglobin 13.6 g/dL (12.0-15.0); Immature Granulocyte Absolute 0.07 K/mm3 (0.00-0.031); Immature Granulocyte Percent A 0.4 % (0-0.5); Lymphocytes Absolute Auto 1.25 K/mm3 (0.9-3.2); Lymphocytes Percent Auto 7.9 % (18.3-44.2); Mean Corpuscular HGB Conc 33.6 g/dl (32-36); Mean Corpuscular Hemoglobin 28.5 pg (26-34); Mean Corpuscular Volume 84.9 fl (80-100); Mean Platelet Volume 10.8 fl (7.4-10.4); Monocytes Absolute Auto 0.3 K/mm3 (0.1-0.6); Neutrophils Absolute Auto 14.2 K/mm3 (1.3-6.7); Neutrophils Percent Auto 89.1 % (45.5-73.1); Platelet Count Result 332 k/mm3 (150-375); Red Blood Count 4.77 M/mm3 (4.2-5.4); Red Cell Distribution Width 13.2 % (11.5-14.5); White Blood Count 15.9 K/mm3 (4.5-10.0)
[2021-08-20 17:21] LABS: Albumin Level 5.4 g/dL (3.5-5.1); Alkaline Phosphatase 65 U/L (38-126); Anion Gap 18 mmol/L (8-16); Aspartate Amino Transferase 42 U/L (14-36); Bilirubin,Total 0.8 mg/dL (0.2-1.3); Blood Urea Nitrogen 10 mg/dL (7-17); Calcium 9.9 mg/dL (8.4-10.2); Carbon Dioxide 15 mmol/L (22-30); Chloride 106 mmol/L (98-107); Estimated CRCL calculation 99 ml/min; Estimated Glomerular Filt Rate > 60; Glucose 158 mg/dL (65-110); Lipase 45 U/L (23-300); Potassium 3.6 mmol/L (3.4-5.0); Sodium 139 mmol/L (137-145)
[2021-08-20 17:23] LABS: Alanine Aminotransferase 25 U/L (6-35)
[2021-08-20 17:38] LABS: Appearance Urine Slightly Cloudy (Clear); Bilirubin Urine 1+ (Negative); Blood Urine 3+ (Negative); Color Urine Yellow (Yellow); Glucose Urine UA Negative (Negative); Ketones Urine 4+ mg/dL (Negative); Leukocyte Esterase Ur Negative LEU/UL (Negative); Nitrate Urine Negative (Negative); Protein Urine 3+ mg/dL (Negative); Specific Grav Ur >= 1.030 (1.001-1.035); Urobilinogen Urine 0.2 mg/dL (<2.0)
[2021-08-20 17:45] LABS: Add Urine Microscopic? YES; Mucus Urine Heavy /lpf; RBC Urine >75 /hpf (0-2); Squamous Epithelial Cell Urine Occasional /hpf (Few); WBC Urine 0-3 /hpf
--- NOTE | 2021-08-20 17:53 | PC.NURSE ---
Pt off floor to ultrasound
--- NOTE | 2021-08-20 18:20 | ED.NAVMDI ---
HPI - Nausea/Vomiting/Diarrhea General Chief complaint: Nausea/Vomiting/Diarrhea <Imani Washington PA-C - Last Filed: 08/20/21 21:10> Stated complaint: N/V <Imani Wsahington PA-C - Last Filed: 08/20/21 21:10> Time Seen by Provider: 08/20/21 17:43 <Imani Washington PA-C - Last Filed: 08/20/21 21:10> Source: patient <SAFIA Hensley Last Filed: 08/20/21 21:10> Mode of arrival: ambulatory <Imani Washington PA-C - Last Filed: 08/20/21 21:10> Limitations: no limitations <Imani Washington PA-C - Last Filed: 08/20/21 21:10> History of Present Illness HPI Narrative: This is a 21-year-old female that presents to the emergency department for nausea and vomiting present today. Associated with upper abdominal pain. The pain is constant and crampy in nature. Denies fever or diarrhea. <Imani Washington PA-C - Last Filed: 08/20/21 21:10> Related Data Allergies/Adverse reactions: Allergies Allergy/AdvReac Type Severity Reaction Status Date / Time amoxicillin [From Augmentin] Allergy Hives Verified 08/20/21 17:50 clavulanic acid Allergy Hives Verified 08/20/21 17:50 [From Augmentin] <Imani Washington PA-C - Last Filed: 08/20/21 21:10> Review of Systems Review of Systems: CONSTITUTIONAL: Denies fever GASTROINTESTINAL: Reports abdominal pain, nausea, vomiting. Denies diarrhea. GENITOURINARY: Denies dysuria <Imani Washington PA-C - Last Filed: 08/20/21 21:10> All systems reviewed & are unremarkable except as noted in HPI and below <Imani Washington PA-C - Last Filed: 08/20/21 21:10> [facility] Past Medical History Medical History: Medical History (Updated 08/20/21 @ 21:10 by Imani Washington PA-C) Cyclic vomiting syndrome <Imani Washington PA-C - Last Filed: 08/20/21 21:10> Surgical History Surgical History: Surgical History No pertinent past surgical history <Imani Washington PA-C - Last Filed: 08/20/21 21:10> Family History Family History: Family History Grandparent Cerebrovascular accident <Imani Washington PA-C - Last Filed: 08/20/21 21:10> Social History Social History: Social History Social History: Surrogate decision maker: Sonja Gomez, grandmother. Code status: Full code. Smoking status: Never smoker Second hand tobacco smoke exposure: Yes Alcohol intake: current Drinks per week: 1 Substance use type: marijuana Other substance usage details: Marijuana daily. Additional living arrangements comments: The patient lives with her boyfriend and his family in [place]. 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 Spiritual care concerns: No <Imani Washington PA-C - Last Filed: 08/20/21 21:10> Exam Narrative: GENERAL: Well-appearing, well-nourished, and in no acute distress. HEAD: Normocephalic, atraumatic. EYES: EOMI. CHEST: Clear to auscultation. No respiratory distress. No wheezes rales or rhonchi HEART: Regular rate and rhythm. No murmur heard. Normal peripheral pulses. ABDOMEN: Soft, nondistended, normal active bowel sounds. Tender to palpation in epigastrium, without guarding. No CVA tenderness EXTREMITIES: Normal range of motion. No edema. SKIN: Warm, dry, no rash. NEURO: No focal deficits. Alert and oriented x3. PSYCH: Normal mood and affect <Imani Washington PA-C - Last Filed: 08/20/21 21:10> Course SENIOR TECHNICAL WRITER/PA Physician Supervision I saw this patient and the care plan was discussed with me labs and imaging reviewed I agree with the care plan <Alen Townsend MD - Last Filed: 08/20/21 21:23> Consultations Consultation #1: Spoke with hospitalist about patient and work-up who accepts admission <Imani Washington PA-C - Last Filed: 08/20/21 21:10> Date: 08/20/21 <Imani Washington PA-C - Last Filed:
[2021-08-20] MEDS: SODIUM CHLORIDE 0.9% IV 1,000 ML 999 ML IV CONT ×2 (18:33→19:37)
[2021-08-20] MEDS: FAMOTIDINE 20 MG/2 ML VIAL IV PUSH (18:35)
[2021-08-20] MEDS: METOCLOPRAMIDE HCL INJ 10 MG/2 ML VIAL IV PUSH (18:37)
[2021-08-20] MEDS: diphenhydrAMINE HCl INJ 50 MG/ML VIAL 25 MG IV PUSH (18:39)
--- NOTE | 2021-08-20 18:41 | PC.NURSE ---
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 Not time for additional dose at this time. Will alert JANIE Diallo
--- NOTE | 2021-08-20 18:49 | PC.NURSE ---
Pt off floor to CT scan
[2021-08-20] MEDS: DICYCLOMINE HCL INJ 20 MG/2 ML VIAL IM (19:37)
[2021-08-20] MEDS: ONDANSETRON INJ 4 MG/2 ML VIAL IV PUSH (20:49)
--- NOTE | 2021-08-20 21:04 | PM.IMHP ---
H&P: HPI History of Present Illness Date/Time: 08/20/21 21:04 Chief Complaint: Nausea and vomiting Narrative: This is a 21-year-old female with past medical history significant for cyclic vomiting syndrome, patient presents today to the emergency room due to intractable nausea and vomiting for the last day or so according to patient she has been in her usual state of health prior to this she denies any fevers, rigors, chills, no diarrhea. Preliminary workup was significant for CBC with a WBC count of 15,[address] of abdomen and pelvis did not show any acute intra-abdominal abnormalities and an ultrasound of the gallbladder was normal. Patient received fluids in the emergency room however was still significantly nauseous and in discomfort also having epigastric abdominal pain. Patient is been placed in observation for further evaluation, management and treatment. Review of Systems Review of Systems: Nausea, vomiting, epigastric abdominal pain. Constitutional: Constitutional: Denies chills and Denies fever(s) Eyes: Eyes: Denies change in vision ENT: Denies dysphagia, Denies vertigo, Denies dizziness, Denies nasal congestion, Denies odynophagia and Denies disequilibrium Cardiovascular: Cardiovascular: Denies chest pain, Denies pedal edema, Denies irregular heart rhythm, Denies claudication, Denies lightheadedness, Denies radiating jaw, neck or arm pain, Denies palpitations and Denies dyspnea on exertion Respiratory: Respiratory: Denies change in phlegm color, Denies cough and Denies excessive phlegm production Gastrointestinal: Gastrointestinal: Reports abdominal pain, Denies dyspepsia, Denies heartburn, Denies diarrhea, Reports nausea and Reports vomiting Genitourinary: Genitourinary: Reports no additional female genitourinary complaints and Reports as per HPI Musculoskeletal: Musculoskeletal: Denies back pain, Denies arthralgias and Denies joint swelling Integumentary/Breasts: Skin/Breast: Denies rash Psychiatric: Psychiatric: Reports no additional psychiatric complaints and Reports as per HPI Endocrine: Endocrine: Denies cold intolerance, Denies fatigue, Denies flushing, Denies heat intolerance, Denies polyphagia, Denies polydipsia and Denies palpitations Hematologic/Lymphatic: Hematologic/Lymphatic: Reports no additional hematologic/lymphatic complaints and Reports as per HPI Allergic/Immunologic: Allergic/Immunologic: Reports no additional allergic/immunologic complaints and Reports as per HPI [facility] Past Medical History Medical History (Updated 08/21/21 @ 01:35 by Binh Bueno MD) Cyclic vomiting syndrome Surgical History Surgical History No pertinent past surgical history Family History Family History (Updated 08/20/21 @ 22:56 by Cierra Greene RN) Grandparent Heart attack Cerebrovascular accident Hypertension Social History Social History Social History: Surrogate decision maker: Sonja Gomez, grandmother. Code status: Full code. Smoking status: Never smoker Second hand tobacco smoke exposure: Yes Alcohol intake: current Drinks per week: 1 Substance use: former Substance use type: marijuana Other substance usage details: Marijuana daily. Additional living arrangements comments: The patient lives with her boyfriend and his family in [place]. 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 Spiritual care concerns: No Meds Home Medications and Allergies Home Medications Medication Instructions Recorded Confirmed Type ondansetron 4 mg disintegrating 4 mg PO Q4H 3 doses #10 tabs 08/05/21 08/20/21 Rx tablet Allergies Allergy/AdvReac Type Severity Reaction Status Date / Time amoxicillin [From Augmentin] Allergy Hives Verified 08/20/21 22:52 clavulanic acid Allergy Hives Verified 08/20/21 22:52 [From Augmentin]
[2021-08-20] MEDS: SODIUM CHLORIDE 0.9% IV 1,000 ML 125 ML IV CONT (21:40)
[2021-08-20 22:25] LABS: SARS-CoV-2 RNA PCR Negative
[2021-08-21] MEDS: ONDANSETRON INJ 4 MG/2 ML VIAL IV PUSH ×4 (02:02→21:17)
[2021-08-21 04:04] VITALS: BP 133/77; PULSE 92; RESP 20; TEMP 37.1; O2SAT 97
[2021-08-21] MEDS: SODIUM CHLORIDE 0.9% IV 1,000 ML 125 ML IV CONT ×2 (05:29→20:33)
--- NOTE | 2021-08-21 08:15 | PM.IMPN ---
Progress Note: A&P Assessment and Plan (1) Acute dehydration: Code(s): E86.0 - Dehydration Status: Acute Assessment and Plan: Place in observation IV fluids Supportive care (2) Cyclic vomiting syndrome: Code(s): R11.15 - Cyclical vomiting syndrome unrelated to migraine Status: Acute Assessment and Plan: Supportive care (3) Intractable vomiting with nausea: Code(s): R11.2 - Nausea with vomiting, unspecified Status: Acute Assessment and Plan: CT abdomen and pelvis reviewed Supportive care NPO currently (4) Abdominal pain: Code(s): R10.9 - Unspecified abdominal pain Status: Acute Assessment and Plan: CT of abdomen and pelvis with no acute intra-abdominal abnormality Right upper quadrant ultrasound with no gallbladder disease On 06/30/2021 patient had gallbladder wall thickening and imaging. Due to the patient's persistent pain will obtain HIDA scan and consult General surgery if needed Patient has leukocytosis, started cipro and flagyl. May de-escalate abx when appropriate Repeat UA Subjective Date/time seen: 08/21/21 08:15 Patient remains NPO and still has mild abdominal tenderness. Pending HIDA scan. Patient was started on Cipro and Flagyl and a repeat UA. With review previous imaging patient appeared to have a gallbladder wall thickening and has had persistent problems since June. May consider consulting General surgery pending HIDA scan results. Review of Systems Review of Systems: All systems reviewed & are unremarkable except as noted in HPI and below Exam Narrative: General: No acute distress. Mental Status: Awake, alert and oriented to person, place, and time with clear speech. Skin: Skin in warm, dry and intact without rashes or lesions. Head: Normocephalic and atraumatic. Eyes: Conjunctivae are clear without exudates or hemorrhage. Sclera is non-icteric. EOM are intact, PERRLA. Ears: The external ear and canal are non-tender and without swelling or discharge. Nose: Nasal mucosa is pink and moist. Septum midline. Nares patent bilaterally. Throat: Oral mucosa pink and moist with good dentition. Tongue midline. Neck: The neck supple without adenopathy. Trachea midline. No JVD. Cardiac: S1 and S2 regular rate and rhythm. No murmurs, gallops, or rubs auscultated. Respiratory: Chest wall symmetric, nontender and without deformity or trauma. Respirations even and unlabored. Lung sounds are clear to auscultation in all lobes bilaterally without wheezes, rhonchi, or rales. Abdominal: Abdomen soft, round and mildly-tender to palpation. Bowel sounds present and normoactive in all 4 quadrants. Spine: Neck and back with grossly normal curvature, no deformity in appearance or signs of trauma. Extremities: Upper and lower extremities atraumatic without tenderness or deformity. Full range of motion and muscle strength 5/5 to all extremities bilaterally. Neurological: Full and symmetric motor and light touch sensation bilaterally. Cranial nerves II-XII grossly intact. Objective Data Vital Signs Vital Signs: Vital Signs - 24 hr 08/20/21 16:45 08/20/21 17:47 08/20/21 17:43 Temperature 96.9 F L 97.5 F L Pulse Rate 112 H 102 H 97 Respiratory Rate 20 17 19 Blood Pressure 142/91 H 131/87 Pulse Oximetry 100 100 99 Oxygen Delivery Room Air Room Air 08/20/21 17:45 08/20/21 17:47 08/20/21 18:43 Temperature Pulse Rate 96 101 H 103 H Respiratory Rate 16 15 Blood Pressure 131/87 139/83 Pulse Oximetry 99 100 Oxygen Delivery 08/20/21 18:44 08/20/21 18:47 08/20/21 18:33 Temperature Pulse Rate 102 H 100 107 H Respiratory Rate 21 H Blood Pressure 131/100 H 134/103 H 137/81 Pulse Oximetry 100 Oxygen Delivery 08/20/21 19:01 08/20/21 19:15 08/20/21 19:30 Temperature Pulse Rate 96 92 93 Respiratory Rate 14 15 20 Blood Pressure Pulse Oximetry 98 100 100 Oxygen Delivery 08/20/21 19:45 08/20/21 21:00
[2021-08-21] MEDS: metroNIDAZOLE 500 MG/ISO 100ML 500 MG/100 ML BAG 100 MG IVPB ×2 (08:52→16:17)
[2021-08-21 09:35] LABS: Appearance Urine Clear (Clear); Bilirubin Urine Negative (Negative); Blood Urine 3+ (Negative); Color Urine Yellow (Yellow); Glucose Urine UA Negative (Negative); Ketones Urine 2+ mg/dL (Negative); Leukocyte Esterase Ur Negative LEU/UL (NEGATIVE); Nitrate Urine Negative (Negative); Protein Urine Negative (Negative); Specific Grav Ur 1.015 (1.001-1.035); Urobilinogen Urine 0.2 mg/dL (<2.0)
[2021-08-21 09:52] LABS: Bacteria Urine Trace /hpf; Squamous Epithelial Cell Urine Rare /hpf (Few); WBC Urine 0-3 /hpf (0-3)
[2021-08-21 09:54] LABS: Add Urine Microscopic? YES
[2021-08-21] MEDS: CIPROFLOXACIN 400 MG/D5W 200ML 200 ML 200 MG IVPB ×2 (10:04→17:32)
[2021-08-21 14:05] VITALS: BP 111/90; PULSE 82; RESP 16; TEMP 37.1; O2SAT 100
[2021-08-21 19:21] VITALS: BP 135/87; PULSE 76; RESP 20; TEMP 36.9; O2SAT 100
[2021-08-22] MEDS: metroNIDAZOLE 500 MG/ISO 100ML 500 MG/100 ML BAG 100 MG IVPB ×3 (00:21→17:09)
[2021-08-22] MEDS: CIPROFLOXACIN 400 MG/D5W 200ML 200 ML 200 MG IVPB ×3 (01:25→18:13)
[2021-08-22] MEDS: ONDANSETRON INJ 4 MG/2 ML VIAL IV PUSH ×4 (04:16→19:33)
[2021-08-22 04:20] VITALS: BP 125/77; PULSE 83; RESP 17; TEMP 36.4; O2SAT 98
[2021-08-22] MEDS: SODIUM CHLORIDE 0.9% IV 1,000 ML 125 ML IV CONT ×2 (04:20→18:06)
[2021-08-22 08:39] LABS: Hematocrit 32.4 % (37.0-47.0); Hemoglobin 10.9 g/dL (12.0-15.0); Mean Corpuscular HGB Conc 33.6 g/dl (32-36); Mean Corpuscular Hemoglobin 28.8 pg (26-34); Mean Corpuscular Volume 85.7 fl (80-100); Mean Platelet Volume 11.1 fl (7.4-10.4); Platelet Count Result 211 k/mm3 (150-375); Red Blood Count 3.78 M/mm3 (4.2-5.4); Red Cell Distribution Width 13.3 % (11.5-14.5)
[2021-08-22 08:51] LABS: Alanine Aminotransferase 15 U/L (6-35); Alkaline Phosphatase 41 U/L (38-126); Anion Gap 9 mmol/L (8-16); Aspartate Amino Transferase 19 U/L (14-36); Bilirubin,Total 0.4 mg/dL (0.2-1.3); Blood Urea Nitrogen 6 mg/dL (7-17); Calcium 8.1 mg/dL (8.4-10.2); Carbon Dioxide 21 mmol/L (22-30); Chloride 107 mmol/L (98-107); Estimated CRCL calculation 99 ml/min; Estimated Glomerular Filt Rate > 60; Glucose 95 mg/dL (65-110); Potassium 3.2 mmol/L (3.4-5.0); Sodium 137 mmol/L (137-145)
--- NOTE | 2021-08-22 10:04 | PM.IMPN ---
Progress Note: A&P Assessment and Plan (1) Acute dehydration: Code(s): E86.0 - Dehydration Status: Acute Assessment and Plan: Place in observation IV fluids Supportive care (2) Cyclic vomiting syndrome: Code(s): R11.15 - Cyclical vomiting syndrome unrelated to migraine Status: Acute Assessment and Plan: Supportive care (3) Intractable vomiting with nausea: Code(s): R11.2 - Nausea with vomiting, unspecified Status: Acute Assessment and Plan: CT abdomen and pelvis reviewed Supportive care NPO currently (4) Abdominal pain: Code(s): R10.9 - Unspecified abdominal pain Status: Acute Assessment and Plan: CT of abdomen and pelvis with no acute intra-abdominal abnormality Right upper quadrant ultrasound with no gallbladder disease On 06/30/2021 patient had gallbladder wall thickening and imaging. Due to the patient's persistent pain will obtain HIDA scan unable to obtain a HIDA scan. Defer further recommendations to gastroenterology. Consult Gastroenterology for further management and recommendations Patient has leukocytosis, started cipro and flagyl. May de-escalate abx when appropriate Repeat UA -WNL Obtain labs, lipase Subjective Date/time seen: 08/22/21 10:04 Interval history: Patient is alert and oriented this morning. She is nauseated and had 1 episode of emesis, nonbloody non biliary. GI was consulted this morning for further management recommendations. Unable perform HIDA scan as it does only performed on Tuesdays and . Pending further recommendations from Gastroenterology. Patient has remained NPO and continue IV antibiotics and antiemetics as well as IV pain medication. Patient currently is menstruating and reports extreme emotional stress. No acute events reported by RN during the night. Review of Systems Review of Systems: All systems reviewed & are unremarkable except as noted in HPI and below Exam Narrative: General: No acute distress. Mental Status: Awake, alert and oriented to person, place, and time with clear speech. Skin: Skin in warm, dry and intact without rashes or lesions. Head: Normocephalic and atraumatic. Eyes: Conjunctivae are clear without exudates or hemorrhage. Sclera is non-icteric. EOM are intact, PERRLA. Ears: The external ear and canal are non-tender and without swelling or discharge. Nose: Nasal mucosa is pink and moist. Septum midline. Nares patent bilaterally. Throat: Oral mucosa pink and moist with good dentition. Tongue midline. Neck: The neck supple without adenopathy. Trachea midline. No JVD. Cardiac: S1 and S2 regular rate and rhythm. No murmurs, gallops, or rubs auscultated. Respiratory: Chest wall symmetric, nontender and without deformity or trauma. Respirations even and unlabored. Lung sounds are clear to auscultation in all lobes bilaterally without wheezes, rhonchi, or rales. Abdominal: Abdomen soft, round and mildly-tender to palpation. Bowel sounds present and normoactive in all 4 quadrants. Spine: Neck and back with grossly normal curvature, no deformity in appearance or signs of trauma. Extremities: Upper and lower extremities atraumatic without tenderness or deformity. Full range of motion and muscle strength 5/5 to all extremities bilaterally. Neurological: Full and symmetric motor and light touch sensation bilaterally. Cranial nerves II-XII grossly intact. Objective Data Vital Signs Vital Signs: Vital Signs - 24 hr 08/21/21 14:05 08/21/21 19:21 08/21/21 20:00 Temperature 98.7 F 98.4 F Pulse Rate 82 76 Respiratory Rate 16 20 Blood Pressure 111/90 135/87 Pulse Oximetry 100 100 Oxygen Delivery Room Air 08/22/21 04:20 08/22/21 07:18 Temperature 97.6 F Pulse Rate 83 Respiratory Rate 17 Blood Pressure 125/77 Pulse Oximetry 98 Oxygen Delivery Room Air Intake/Output Intake/Output: Intake & Output 08/19/21 08/20/21 08/21/21 08/22/21 23:59 23:59
[2021-08-22] MEDS: fentaNYL CITRATE INJ (*CRX) 100 MCG/2 ML VIAL 12.5 MCG IV PUSH (10:37)
[2021-08-22] MEDS: KCL 20 MEQ/SW 100 ML 100 ML 50 MEQ IVPB (11:34)
[2021-08-22 12:45] LABS: Lipase 71 U/L (23-300)
[2021-08-22 14:20] VITALS: BP 136/88; PULSE 85; RESP 15; TEMP 36.6; O2SAT 100
[2021-08-22] MEDS: KETOROLAC 15 MG/ML VIAL (*BKC) IV PUSH (15:14)
[2021-08-22 19:13] VITALS: BP 135/84; PULSE 69; RESP 18; TEMP 36.4; O2SAT 100
[2021-08-22 20:00] VITALS: PULSE 69; RESP 18; O2SAT 100
[2021-08-22] MEDS: diphenhydrAMINE HCl INJ 50 MG/ML VIAL IV PUSH (21:28)
[2021-08-23] VITALS (8 sets, daily range): BP systolic 123–143; BP diastolic 79–103; PULSE 68–96; RESP 16–17; TEMP 36.8–37.1; O2SAT 97–100
[2021-08-23] MEDS: ONDANSETRON INJ 4 MG/2 ML VIAL IV PUSH ×4 (01:02→20:24)
[2021-08-23] MEDS: metroNIDAZOLE 500 MG/ISO 100ML 500 MG/100 ML BAG 100 MG IVPB (01:03)
[2021-08-23] MEDS: CIPROFLOXACIN 400 MG/D5W 200ML 200 ML 200 MG IVPB (01:03)
[2021-08-23] MEDS: SODIUM CHLORIDE 0.9% IV 1,000 ML 125 ML IV CONT ×3 (05:19→17:23)
--- NOTE | 2021-08-23 07:49 | WPDGICN ---
Assessment and Plan Assessment and plan (1) Cyclic vomiting syndrome: Code(s): R11.15 - Cyclical vomiting syndrome unrelated to migraine Status: Acute Assessment and Plan: Patient with cyclical vomiting syndrome. Appears be related to marijuana use. She should abstain from this. Plan is for EGD because of several admissions with this. Dark material in NG tube raises the question of gastric irritation. This will be evaluated by EGD. (2) Anemia: Code(s): D64.9 - Anemia, unspecified Status: Acute Assessment and Plan: Patient with mild anemia. This likely is multifactorial. EGD will be performed to exclude irritation or ulceration or gastritis within the upper GI tract. (3) Leukocytosis: Code(s): D72.829 - Elevated white blood cell count, unspecified Status: Acute Assessment and Plan: Leukocytosis noted likely reactive. Patient now on antibiotics. For unclear reasons. If no infection identified would consider holding these pending results of cultures. GI Consult Note Consult date/time: 08/23/21 07:49 Reason for consult: Nausea vomiting HPI: Anette Vinson is a 21 year old female I am asked to see at the request of the hospitalist service because of recurrent protracted nausea vomiting. Patient has been admitted to the hospital several times over the last several months. She has had recurrent nausea vomiting. She does admit to frequent marijuana use. This is previously been attributed to cyclical vomiting. Patient does get relief with hot showers. She has minimized her marijuana use but has remitted the hospital with protracted nausea vomiting. NG tube was placed yesterday because of nausea vomiting some dark coffee-ground appearance material was retrieved. Patient also noted to have leukocytosis at time of admission that has resolved. She was placed empirically on antibiotics for uncertain reasons. Patient has had a mild decline in hemoglobin. Patient feels less nausea today. Review of Systems Review of Systems: Review of systems noncontributory. [facility] Past Medical History Medical History (Updated 08/23/21 @ 07:52 by Pato Fernandez MD) Cyclic vomiting syndrome Surgical History Surgical History No pertinent past surgical history Family History Family History (Updated 08/20/21 @ 22:56 by Cierra Greene RN) Grandparent Heart attack Cerebrovascular accident Hypertension Social History Social History Social History: Surrogate decision maker: Sonja Gomez, grandmother. Code status: Full code. Smoking status: Never smoker Second hand tobacco smoke exposure: Yes Alcohol intake: current Drinks per week: 1 Substance use: former Substance use type: marijuana Other substance usage details: Marijuana daily. Additional living arrangements comments: The patient lives with her boyfriend and his family in [place]. 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 Spiritual care concerns: No Meds Home Medications and Allergies Home Medications Medication Instructions Recorded Confirmed Type ondansetron 4 mg disintegrating 4 mg PO Q4H 3 doses #10 tabs 08/05/21 08/20/21 Rx tablet Allergies Allergy/AdvReac Type Severity Reaction Status Date / Time amoxicillin [From Augmentin] Allergy Hives Verified 08/20/21 22:52 clavulanic acid Allergy Hives Verified 08/20/21 22:52 [From Augmentin] Vital Signs Vital Signs - 24 hr 08/22/21 14:20 08/22/21 19:13 08/22/21 20:00 Temperature 98 F 97.5 F L Pulse Rate 85 69 69 Respiratory Rate 15 18 18 Blood Pressure 136/88 135/84 Pulse Oximetry 100 100 100 Oxygen Delivery Room Air 08/23/21 04:09 Temperature 98.2 F Pulse Rate 73 Respiratory Rate 17 Blood Pressure 125/85 Pulse Oximetry 97 Oxygen Delivery
[2021-08-23 08:01] LABS: Basophils Percent Auto 0.5 % (0.2-1.2); Eosinophils Percent Auto 0.1 % (0-4.4); Hematocrit 35.8 % (37.0-47.0); Immature Granulocyte Absolute 0.03 K/mm3 (0.00-0.031); Immature Granulocyte Percent A 0.3 % (0-0.5); Lymphocytes Absolute Auto 1.75 K/mm3 (0.9-3.2); Lymphocytes Percent Auto 20.1 % (18.3-44.2); Mean Corpuscular HGB Conc 33.5 g/dl (32-36); Mean Corpuscular Hemoglobin 28.6 pg (26-34); Mean Corpuscular Volume 85.4 fl (80-100); Monocytes Absolute Auto 0.5 K/mm3 (0.1-0.6); Monocytes Percent Auto 6.2 % (2.6-8.5); Neutrophils Absolute Auto 6.3 K/mm3 (1.3-6.7); Neutrophils Percent Auto 72.8 % (45.5-73.1); Platelet Count Result 236 k/mm3 (150-375); Red Blood Count 4.19 M/mm3 (4.2-5.4); White Blood Count 8.7 K/mm3 (4.5-10.0)
[2021-08-23 08:14] LABS: Alanine Aminotransferase 14 U/L (6-35); Albumin Level 4.3 g/dL (3.5-5.1); Alkaline Phosphatase 45 U/L (38-126); Anion Gap 9 mmol/L (8-16); Aspartate Amino Transferase 21 U/L (14-36); Bilirubin,Total 0.7 mg/dL (0.2-1.3); Blood Urea Nitrogen 5 mg/dL (7-17); Calcium 8.6 mg/dL (8.4-10.2); Carbon Dioxide 20 mmol/L (22-30); Chloride 105 mmol/L (98-107); Estimated CRCL calculation 99 ml/min; Estimated Glomerular Filt Rate > 60; Glucose 86 mg/dL (65-110); Sodium 134 mmol/L (137-145)
[2021-08-23] MEDS: PANTOPRAZOLE SODIUM IV 40 MG VIAL IV PUSH (09:09)
--- NOTE | 2021-08-23 10:19 | PM.DS ---
DS: Admitting Diagnosis Discharge Date 08/24/2021 Admitting Diagnosis Intractable nausea and vomiting Acute abdominal pain DS: Discharge Diagnosis Discharge Diagnosis (1) Acute dehydration: Code(s): E86.0 - Dehydration Status: Acute Assessment and Plan: Place in observation IV fluids Supportive care (2) Cyclic vomiting syndrome: Code(s): R11.15 - Cyclical vomiting syndrome unrelated to migraine Status: Acute Assessment and Plan: Supportive care (3) Intractable vomiting with nausea: Code(s): R11.2 - Nausea with vomiting, unspecified Status: Acute Assessment and Plan: CT abdomen and pelvis reviewed Supportive care NPO currently (4) Abdominal pain: Code(s): R10.9 - Unspecified abdominal pain Status: Acute Assessment and Plan: CT of abdomen and pelvis with no acute intra-abdominal abnormality Right upper quadrant ultrasound with no gallbladder disease On 06/30/2021 patient had gallbladder wall thickening and imaging. Due to the patient's persistent pain will obtain HIDA scan unable to obtain a HIDA scan. Defer further recommendations to gastroenterology. Consult Gastroenterology for further management and recommendations Patient has leukocytosis, started cipro and flagyl. May de-escalate abx when appropriate Repeat UA -WNL Obtain labs, lipase DS: Summary Hospital Course Reason for hospitalization: Intractable nausea and vomiting Hospital Course: Patient is 21-year-old female with a past medical history of cyclic vomiting syndrome related to marijuana usage. Patient presented to the emergency department on 09/16/2021 due to intractable nausea and vomiting for the last several days. According to the patient she was in her usual state of health prior to coming to the emergency department. She denies any fevers, rigors, chills, nausea, upset stomach or diarrhea. Upon further evaluation in the emergency department labs and imaging were obtained. Patient did have a WBC of 15.9, hemoglobin 13.6, hematocrit 40.5, platelet 332, sodium 139, potassium 3.6, BUN 10 and creatinine is 0.7, normal LFTs and UA essentially negative. Patient also reported she currently menstruating. She was also mildly tachycardic in the emergency department and tachypneic, afebrile. Hospitalist team was consulted for admission due to cyclic vomiting syndrome. The patient was made NPO and initiated on IV fluids as well as supportive care. CT of the abdomen and pelvis was reviewed which did not reveal significant abnormalities, ultrasound of the abdomen did not report significant abnormalities. Patient did have a history of gallbladder wall thickening on imaging in June of this year. Due to the persistent pain HIDA scan was ordered unfortunately HIDA scans was unable to be performed. The patient was empirically started on Cipro and Flagyl due to significant leukocytosis and deescalated. Gastroenterology was consulted due to the patient's persistent pain. Suggested placing an NG tube. GI output was coffee ground emesis and therefore Gastroenterology performed an EGD for further evaluation. Status at Discharge Cognitive/behavioral status at discharge: A&O x4 Functional status at discharge: independent ambulation Overall status at discharge: patient is back to baseline Time Spent with Patient Time attestation: Total time spent providing and/or coordinating discharge services: Time spent: Less than 30 minutes Exam Narrative: General: No acute distress. Mental Status: Awake, alert and oriented to person, place, and time with clear speech. Skin: Skin in warm, dry and intact without rashes or lesions. Head: Normocephalic and atraumatic. Eyes: Conjunctivae are clear without exudates or hemorrhage. Sclera is non-icteric. EOM are intact, PERRLA. Ears: The external ear and canal are non-tender and without swelling or discharge. Nose: Nasal mucosa is pink and moist. Septum midlin
--- NOTE | 2021-08-23 10:54 | WPDANESEPPF ---
Anes - Initial Pre Proc Eval Procedure: Operation Date: 08/23/21 12:30 Proposed Procedures p Esophagogastroduodenoscopy - Pato Fernandez MD Date/Time: 08/23/21 10:54 Surgeon: Binh Bueno MD Pre Op Diagnosis: dehydration, intractable nausea and vomiting Patient Data Age: 21 Gender: F Height: 1.65 m Weight: 61.3 kg Last Vital Signs Temp 36.8 C 08/23/21 04:09 Pulse 73 08/23/21 04:09 Resp 17 08/23/21 04:09 BP 125/85 08/23/21 04:09 Pulse Ox 97 08/23/21 04:09 O2 Del Method Room Air 08/23/21 08:00 Allergies Allergy/AdvReac Type Severity Reaction Status Date / Time amoxicillin [From Augmentin] Allergy Hives Verified 08/23/21 10:52 clavulanic acid Allergy Hives Verified 08/23/21 10:52 [From Augmentin] Home Medications Medication Instructions Recorded Confirmed Type ondansetron 4 mg disintegrating 4 mg PO Q4H 3 doses #10 tabs 08/05/21 08/20/21 Rx tablet Laboratory Tests 08/22/21 08/23/21 08/23/21 08:28 07:46 07:46 WBC 8.7 K/mm3 K/mm3 (4.5-10.0) RBC 4.19 M/mm3 L M/mm3 (4.2-5.4) Hgb 12.0 g/dL g/dL (12.0-15.0) Hct 35.8 % L % (37.0-47.0) MCV 85.4 fl fl (80-100) MCH 28.6 pg pg (26-34) MCHC 33.5 g/dl g/dl (32-36) RDW 13.0 % % (11.5-14.5) Plt Count 236 k/mm3 k/mm3 (150-375) MPV 11.0 fl H fl (7.4-10.4) Immature Gran % (Auto) 0.3 % % (0-0.5) Neut % (Auto) 72.8 % % (45.5-73.1) Lymph % (Auto) 20.1 % % (18.3-44.2) [place] % (Auto) 6.2 % % (2.6-8.5) Eos % (Auto) 0.1 % % (0-4.4) Baso % (Auto) 0.5 % % (0.2-1.2) Lymph # (Auto) 1.75 K/mm3 K/mm3 (0.9-3.2) [place] # (Auto) 0.5 K/mm3 K/mm3 (0.1-0.6) Eos # (Auto) 0.0 K/mm3 K/mm3 (0-0.3) Baso # (Auto) 0.0 K/mm3 K/mm3 (0.0-0.1) Abs Immat Gran (auto) 0.03 K/mm3 K/mm3 (0.00-0.031) Absolute Neuts (auto) 6.3 K/mm3 K/mm3 (1.3-6.7) Absolute Nucleated RBC 0.0 K/mm3 K/mm3 (0.0-0.012) Nucleated RBC % 0.0 % % (0.0-0.2) Sodium 134 mmol/L L mmol/L (137-145) Potassium 3.0 mmol/L L mmol/L (3.4-5.0) Chloride 105 mmol/L mmol/L (98-107) Carbon Dioxide 20 mmol/L L mmol/L (22-30) Anion Gap 9 mmol/L mmol/L (8-16) BUN 5 mg/dL L mg/dL (7-17) Creatinine 0.70 mg/dL mg/dL (0.7-1.0) Estim Creat Clear Calc 99 ml/min ml/min Estimated GFR > 60 (59 - ) Glucose 86 mg/dL mg/dL (65-110) Calcium 8.6 mg/dL mg/dL (8.4-10.2) Total Bilirubin 0.7 mg/dL mg/dL (0.2-1.3) AST 21 U/L U/L (14-36) ALT 14 U/L U/L (6-35) Alkaline Phosphatase 45 U/L U/L (38-126) Total Protein 7.0 g/dL g/dL (6.3-8.2) Albumin 4.3 g/dL g/dL (3.5-5.1) Lipase 71 U/L U/L (23-300) Patient hx anesthesia problems: none Family hx anesthesia problems: none Results Review: All pre-operative results and documents have been reviewed as part of the pre-operative evaluation. [facility] Past Medical History Medical History (Updated 08/23/21 @ 07:52 by Pato Fernandez MD) Cyclic vomiting syndrome Surgical History Surgical History No pertinent past surgical history Family History Family History (Updated 08/20/21 @ 22:56 by Cierra Greene RN) Grandparent Heart attack Cerebrovascular accident Hypertension Social History Social History Social History: Surrogate decision maker: Sonja Gomez, grandmother. Code status: Full code. Smoking status: Never smoker Second hand tobacco smoke exposure: Yes Alcohol intake: current Drinks per week: 1 Substance use: former Substance use type: marijuana
[2021-08-23] MEDS: LACTATED RINGERS 1,000 ML 150 ML IV CONT (11:02)
--- NOTE | 2021-08-23 12:05 | PM.IMPN ---
Progress Note: A&P Assessment and Plan (1) Acute dehydration: Code(s): E86.0 - Dehydration Status: Acute Assessment and Plan: Place in observation IV fluids Supportive care (2) Cyclic vomiting syndrome: Code(s): R11.15 - Cyclical vomiting syndrome unrelated to migraine Status: Acute Assessment and Plan: Supportive care (3) Intractable vomiting with nausea: Code(s): R11.2 - Nausea with vomiting, unspecified Status: Acute Assessment and Plan: CT abdomen and pelvis reviewed Supportive care NPO currently (4) Abdominal pain: Code(s): R10.9 - Unspecified abdominal pain Status: Acute Assessment and Plan: CT of abdomen and pelvis with no acute intra-abdominal abnormality Right upper quadrant ultrasound with no gallbladder disease On 06/30/2021 patient had gallbladder wall thickening and imaging. Due to the patient's persistent pain will obtain HIDA scan unable to obtain a HIDA scan. Defer further recommendations to gastroenterology. Consult Gastroenterology for further management and recommendations Patient has leukocytosis, started cipro and flagyl. May de-escalate abx when appropriate Repeat UA -WNL Obtain labs, lipase EGD performed by Gastroenterology which revealed multiple ulcers, nonbleeding. Patient was started on pantoprazole 40 mg b.i.d. Subjective Date/time seen: 08/23/21 12:05 Interval history: Patient is doing well this morning she continues complaint of acute abdominal pain. She went for an EGD this morning which found multiple ulcers, nonbleeding. She was started on pantoprazole 40 mg b.i.d.. Pending Gastroenterology's recommendations she can be discharged tomorrow. And started on pantoprazole 40 mg daily with avoidance of NSAIDs and aspirin. Review of Systems Review of Systems: All systems reviewed & are unremarkable except as noted in HPI and below Exam Narrative: General: No acute distress. Mental Status: Awake, alert and oriented to person, place, and time with clear speech. Skin: Skin in warm, dry and intact without rashes or lesions. Head: Normocephalic and atraumatic. Eyes: Conjunctivae are clear without exudates or hemorrhage. Sclera is non-icteric. EOM are intact, PERRLA. Ears: The external ear and canal are non-tender and without swelling or discharge. Nose: Nasal mucosa is pink and moist. Septum midline. Nares patent bilaterally. Throat: Oral mucosa pink and moist with good dentition. Tongue midline. Neck: The neck supple without adenopathy. Trachea midline. No JVD. Cardiac: S1 and S2 regular rate and rhythm. No murmurs, gallops, or rubs auscultated. Respiratory: Chest wall symmetric, nontender and without deformity or trauma. Respirations even and unlabored. Lung sounds are clear to auscultation in all lobes bilaterally without wheezes, rhonchi, or rales. Abdominal: Abdomen soft, round and mildly-tender to palpation. Bowel sounds present and normoactive in all 4 quadrants. Spine: Neck and back with grossly normal curvature, no deformity in appearance or signs of trauma. Extremities: Upper and lower extremities atraumatic without tenderness or deformity. Full range of motion and muscle strength 5/5 to all extremities bilaterally. Neurological: Full and symmetric motor and light touch sensation bilaterally. Cranial nerves II-XII grossly intact. Objective Data Vital Signs Vital Signs: Vital Signs - 24 hr 08/22/21 14:20 08/22/21 19:13 08/22/21 20:00 Temperature 98 F 97.5 F L Pulse Rate 85 69 69 Respiratory Rate 15 18 18 Blood Pressure 136/88 135/84 Pulse Oximetry 100 100 100 Oxygen Delivery Room Air 08/23/21 04:09 08/23/21 08:00 08/23/21 10:55 Temperature 98.2 F 98.6 F Pulse Rate 73 73 Respiratory Rate 17 16 Blood Pressure 125/85 127/82 Pulse Oximetry 97 100 Oxygen Delivery Room Air Room Air 08/23/21 11:35 08/23/21 11:44 08/23/21 11:54 Temperature Pulse Rate 82 68 71 Respiratory Rat
[2021-08-23] MEDS: PANTOPRAZOLE 40 MG TABLET PO (20:24)
[2021-08-24] MEDS: SODIUM CHLORIDE 0.9% IV 1,000 ML 125 ML IV CONT ×3 (01:26→17:59)
[2021-08-24] MEDS: ONDANSETRON INJ 4 MG/2 ML VIAL IV PUSH ×3 (01:39→11:33)
[2021-08-24 04:50] VITALS: BP 134/84; PULSE 85; RESP 16; TEMP 37.2; O2SAT 99
--- NOTE | 2021-08-24 07:50 | P.PNAN_ITS ---
Anes - Prog Note Post-Op Date/Time: 08/24/21 07:50 Cardiovascular status: normal Respiratory status: normal Airway patency: baseline Mental status: baseline Post-Op hydration status: normal Vital Signs: Last Vital Signs Temp 37.2 C 08/24/21 04:50 Pulse 85 08/24/21 04:50 Resp 16 08/24/21 04:50 BP 134/84 08/24/21 04:50 Pulse Ox 99 08/24/21 04:50 O2 Del Method Room Air 08/24/21 07:42 Pain Score (VAS): 0 I/O: Intake & Output 08/23/21 08/23/21 08/24/21 15:59 23:59 07:59 Intake Total 1200 1120 1000 Balance 1200 1120 1000 Laboratory Tests 08/23/21 07:46 08/23/21 07:46 08/23/21 08/23/21 07:46 07:46 WBC 8.7 RBC 4.19 L Hgb 12.0 Hct 35.8 L MCV 85.4 MCH 28.6 MCHC 33.5 RDW 13.0 Plt Count 236 MPV 11.0 H Immature Gran % (Auto) 0.3 Neut % (Auto) 72.8 Lymph % (Auto) 20.1 [place] % (Auto) 6.2 Eos % (Auto) 0.1 Baso % (Auto) 0.5 Lymph # (Auto) 1.75 [place] # (Auto) 0.5 Eos # (Auto) 0.0 Baso # (Auto) 0.0 Abs Immat Gran (auto) 0.03 Absolute Neuts (auto) 6.3 Absolute Nucleated RBC 0.0 Nucleated RBC % 0.0 Sodium 134 L Potassium 3.0 L Chloride 105 Carbon Dioxide 20 L Anion Gap 9 BUN 5 L Creatinine 0.70 Estim Creat Clear Calc 99 Estimated GFR > 60 Glucose 86 Calcium 8.6 Total Bilirubin 0.7 AST 21 ALT 14 Alkaline Phosphatase 45 Total Protein 7.0 Albumin 4.3 Post-procedural complaints: none Patient Feedback: Patient satisfied with anesthetic care.
[2021-08-24] MEDS: PANTOPRAZOLE 40 MG TABLET PO ×2 (08:02→20:20)
--- NOTE | 2021-08-24 08:34 | WPDGIPROGNO ---
Progress Note: A&P Assessment and Plan (1) Gastric ulcer: Code(s): K25.9 - Gastric ulcer, unspecified as acute or chronic, without hemorrhage or perforation Status: Acute Assessment and Plan: Patient with multiple gastric ulcerations. Likely cause some of her symptoms. Biopsy of this to exclude H pylori still pending. Plan to continue PPI therapy advance to a bland diet as tolerated. Patient should continue to avoid marijuana as she likely also has cyclical vomiting syndrome (2) Cyclic vomiting syndrome: Code(s): R11.15 - Cyclical vomiting syndrome unrelated to migraine Status: Acute Assessment and Plan: continue to avoid marijuana. Advance diet as tolerated. Supportive care for now. Subjective Date/time seen: 08/24/21 08:34 Patient alert. Had 1 episode of nausea last evening after drinking Sprite soda. Patient currently comfortable at rest. Review of Systems Review of Systems: Review of systems noncontributory. Exam Narrative: Physical exam reveals Vital Signs be stable. HEENT exam is unremarkable. Patient is anicteric. Lungs are clear. Heart without murmur. Abdomen bowel sounds present soft mild tenderness in the epigastric area no organomegaly evident. Objective Data Vital Signs Vital Signs: Vital Signs - 24 hr 08/23/21 10:55 08/23/21 11:35 08/23/21 11:44 Temperature 98.6 F Pulse Rate 73 82 68 Respiratory Rate 16 16 16 Blood Pressure 127/82 123/89 143/103 H Pulse Oximetry 100 100 100 Oxygen Delivery Room Air Room Air Room Air 08/23/21 11:54 08/23/21 14:00 08/23/21 20:00 Temperature 98.5 F Pulse Rate 71 72 72 Respiratory Rate 16 16 16 Blood Pressure 137/101 H 140/93 H Pulse Oximetry 100 99 99 Oxygen Delivery Room Air Room Air 08/23/21 20:52 08/24/21 04:50 08/24/21 07:42 Temperature 98.7 F 98.9 F Pulse Rate 96 85 Respiratory Rate 16 16 Blood Pressure 136/79 134/84 Pulse Oximetry 98 99 Oxygen Delivery Room Air Intake/Output Intake/Output: Intake & Output 08/21/21 08/22/21 08/23/21 08/24/21 23:59 23:59 23:59 23:59 Intake Total 2700 3200 3620 1999 Output Total 200 900 Balance 2500 3200 2720 1999 Meds/Results Medications: Active Medications Generic Name Dose Route Start Last Admin Trade Name Freq PRN Reason Stop Dose Admin Sodium Chloride 1,000 mls @ 125 mls/hr 08/20/21 21:10 08/24/21 08:02 Normal Saline Iv IV CONT 125 mls/hr .Q8H LAMONT Administration Ondansetron HCl 4 mg 08/21/21 00:45 08/24/21 08:02 Ondansetron Inj 4 Mg/2 Ml Vial IV PUSH 4 mg Q4H PRN Administration Nausea And Vomiting Pantoprazole Sodium 40 mg 08/23/21 21:00 08/24/21 08:02 Pantoprazole 40 Mg Tablet PO 40 mg Q12HR LAMONT Administration Radiology Results: ITS Impressions Abdomen Ultrasound 08/20/21 18:36 IMPRESSION: 1. Normal sonographic study of the gallbladder. Abdomen/Pelvis CT 08/20/21 19:01 IMPRESSION: 1. No CT correlate for the patient's symptoms. Abdomen X-Ray 08/22/21 15:31 IMPRESSION: NG tube, in good position. Hepatobiliary Scan Nuclear Medicine 08/23/21 15:06 IMPRESSION: 1. Normal hepatobiliary scintigraphy. [facility] [place] [id number] [facility] Mod
--- NOTE | 2021-08-24 13:23 | PM.IMPN ---
Progress Note: A&P Assessment and Plan (1) Acute dehydration: Code(s): E86.0 - Dehydration Status: Acute Assessment and Plan: Place in observation IV fluids Supportive care (2) Cyclic vomiting syndrome: Code(s): R11.15 - Cyclical vomiting syndrome unrelated to migraine Status: Acute Assessment and Plan: Supportive care (3) Intractable vomiting with nausea: Code(s): R11.2 - Nausea with vomiting, unspecified Status: Acute Assessment and Plan: CT abdomen and pelvis reviewed Supportive care NPO currently (4) Abdominal pain: Code(s): R10.9 - Unspecified abdominal pain Status: Acute Assessment and Plan: CT of abdomen and pelvis with no acute intra-abdominal abnormality Right upper quadrant ultrasound with no gallbladder disease On 06/30/2021 patient had gallbladder wall thickening and imaging. Due to the patient's persistent pain will obtain HIDA scan unable to obtain a HIDA scan. Defer further recommendations to gastroenterology. Consult Gastroenterology for further management and recommendations Patient has leukocytosis, started cipro and flagyl. May de-escalate abx when appropriate Repeat UA -WNL Obtain labs, lipase EGD performed which revealed multiple nonbleeding gastric ulcers. Patient was placed on Protonix b.i.d. Subjective Date/time seen: 08/24/21 13:23 Interval history: Patient is alert and oriented this morning. She was able eat her breakfast. Without nausea or vomiting. Patient however was unable to consume her her lunch prior to discharge. Therefore her discharge was canceled and patient will continue on Protonix b.i.d. Review of Systems Review of Systems: All systems reviewed & are unremarkable except as noted in HPI and below Exam Narrative: General: No acute distress. Mental Status: Awake, alert and oriented to person, place, and time with clear speech. Skin: Skin in warm, dry and intact without rashes or lesions. Head: Normocephalic and atraumatic. Eyes: Conjunctivae are clear without exudates or hemorrhage. Sclera is non-icteric. EOM are intact, PERRLA. Ears: The external ear and canal are non-tender and without swelling or discharge. Nose: Nasal mucosa is pink and moist. Septum midline. Nares patent bilaterally. Throat: Oral mucosa pink and moist with good dentition. Tongue midline. Neck: The neck supple without adenopathy. Trachea midline. No JVD. Cardiac: S1 and S2 regular rate and rhythm. No murmurs, gallops, or rubs auscultated. Respiratory: Chest wall symmetric, nontender and without deformity or trauma. Respirations even and unlabored. Lung sounds are clear to auscultation in all lobes bilaterally without wheezes, rhonchi, or rales. Abdominal: Abdomen soft, round and mildly-tender to palpation. Bowel sounds present and normoactive in all 4 quadrants. Spine: Neck and back with grossly normal curvature, no deformity in appearance or signs of trauma. Extremities: Upper and lower extremities atraumatic without tenderness or deformity. Full range of motion and muscle strength 5/5 to all extremities bilaterally. Neurological: Full and symmetric motor and light touch sensation bilaterally. Cranial nerves II-XII grossly intact. Objective Data Vital Signs Vital Signs: Vital Signs - 24 hr 08/23/21 14:00 08/23/21 20:00 08/23/21 20:52 Temperature 98.5 F 98.7 F Pulse Rate 72 72 96 Respiratory Rate 16 16 16 Blood Pressure 140/93 H 136/79 Pulse Oximetry 99 99 98 Oxygen Delivery Room Air 08/24/21 04:50 08/24/21 07:42 Temperature 98.9 F Pulse Rate 85 Respiratory Rate 16 Blood Pressure 134/84 Pulse Oximetry 99 Oxygen Delivery Room Air Intake/Output Intake/Output: Intake & Output 08/21/21 08/22/21 08/23/21 08/24/21 23:59 23:59 23:59 23:59 Intake Total 2700 3200 3620 2020 Output Total 200 900 Balance 2500 3200 2720 2019 Meds/Results Medications: Active Medications Generic Name Dose
[2021-08-24 14:00] VITALS: BP 132/89; PULSE 65; RESP 16; TEMP 37; O2SAT 100
[2021-08-24 20:00] VITALS: PULSE 57; RESP 16; O2SAT 99
[2021-08-24 20:32] VITALS: BP 129/84; PULSE 57; RESP 16; TEMP 36.8; O2SAT 99
[2021-08-24 21:39] LABS: Pregnancy On Board Control Positive; Urine Pregnancy Test Negative
[2021-08-25] MEDS: SODIUM CHLORIDE 0.9% IV 1,000 ML 125 ML IV CONT ×2 (02:04→11:15)
[2021-08-25 05:19] VITALS: BP 122/70; PULSE 69; RESP 16; TEMP 36.6; O2SAT 98
--- NOTE | 2021-08-25 07:20 | PM.DS ---
DS: Admitting Diagnosis Discharge Date 08/25/21 1600 Admitting Diagnosis Nausea and Vomiting DS: Discharge Diagnosis Discharge Diagnosis (1) Gastric ulcer: Code(s): K25.9 - Gastric ulcer, unspecified as acute or chronic, without hemorrhage or perforation Status: Acute Assessment and Plan: CT of abdomen and pelvis with no acute intra-abdominal abnormality Right upper quadrant ultrasound with no gallbladder disease On 06/30/2021 patient had gallbladder wall thickening and imaging. GI consulted and performed an EGD which showed superficial gastric ulcers. Repeat UA -WNL Labs on day of discharge show hypokalemia at 2.9, which I suspect will normalize as patient returns to a PO diet. Will discharge patient with 3 days of potassium with repeat CMP in 1 week as an outpatient. Patient was placed on Protonix 40 b.i.d. Advised to avoid NSAIDS, marijuana, follow bland diet. (2) Acute dehydration: Code(s): E86.0 - Dehydration Status: Acute Assessment and Plan: Place in observation IV fluids Supportive care (3) Cyclic vomiting syndrome: Code(s): R11.15 - Cyclical vomiting syndrome unrelated to migraine Status: Acute Assessment and Plan: Supportive care (4) Intractable vomiting with nausea: Code(s): R11.2 - Nausea with vomiting, unspecified Status: Acute Assessment and Plan: CT abdomen and pelvis reviewed Supportive care NPO currently DS: Summary Hospital Course Reason for hospitalization: Intractable nausea and vomiting Hospital Course: See above for full hospital course Status at Discharge Cognitive/behavioral status at discharge: A&O x4 Time Spent with Patient Time attestation: Total time spent providing and/or coordinating discharge services: 35 mins DS: Data Data Completed and Pending Completed studies during hospitalization: Pending at discharge 08/23/21 11:33 Surgical [PTH] Routine Labs on day of discharge: Labs from last 24 hours 08/24/21 21:26 Urine Test Negative Discharge Plan Discharge Attending physician on discharge: Angélica Claros Consulting providers: Imani Washington ; Pato Fernandez Discharging Clinician: Savanah Daugherty Anticipated Discharge Date/Time: 08/22/21 07:58 Patient Disposition: Home, Self-Care Activity: as tolerated Diet: as tolerated and low fat Discharge Instructions: Discharge disposition: Take medications as prescribed: New Pantoprazole 40 BID, and Potassium 20meq x 3 days. Monitor blood pressures Avoid social areas, you wear a mask when in social settings Encouraged to continue with yearly vaccinations Return to the emergency department if he developed sudden shortness of breath, chest pain, nausea, vomiting, upset stomach or intractable diarrhea Return to the emergency department if you develop fever greater than 101.5 Follow-up with the primary care physician within 1-2 weeks for repeat CMP to check your potassium. Follow-up with primary care physician in discuss possible HIDA scan as an outpatient setting Obtain a follow up EGD in 2-3 months to assess ulcer healing. Strongly encouraged to have a Low-fat and bland diet Thank you for [facility] for your healthcare needs Patient Instructions: Antibiotic Form, Peptic Ulcer (DC), Gastritis (DC), Diet for Stomach Ulcers and Gastritis (ED) Stand Alone Forms: General Discharge Information Follow-up/Referrals: Rosendo Zelaya MD [Primary Care Provider] - 2 Weeks Discharge Medications: New pantoprazole [Protonix] 40 mg tablet,delayed release (DR/EC) 40 mg PO QAM 56 Days Qty: 56 0RF potassium chloride 20 mEq tablet,ER particles/crystals 20 meq PO DAILY Qty: 3 0RF Continued ondansetron 4 mg tablet,disintegrating 4 mg PO Q4H Qty: 10 0RF Rx Instructions: 1st dose 1-2 hr before radiation Other Ambulatory Orders: Comprehensive Metabolic Panel (Routine) Timefr
--- NOTE | 2021-08-25 07:32 | WPDGIPROGNO ---
Progress Note: A&P Assessment and Plan (1) Gastric ulcer: Code(s): K25.9 - Gastric ulcer, unspecified as acute or chronic, without hemorrhage or perforation Status: Acute Assessment and Plan: Patient with several superficial gastric ulcers. Plan to maintain on pantoprazole 40 mg p.o. once daily after discharge. Follow-up EGD suggested in 2 months. Biopsy of ulcer reveals it to be benign H pylori negative. Patient should avoid NSAIDs. Mohave diet suggested. Discharge today. (2) Cyclic vomiting syndrome: Code(s): R11.15 - Cyclical vomiting syndrome unrelated to migraine Status: Acute Assessment and Plan: Patient also appears to have cyclical vomiting syndrome associated with marijuana use. I advised her to abstain from marijuana. Discharge today. Subjective Date/time seen: 08/25/21 07:32 Patient alert comfortable this morning. No additional nausea vomiting. Denies any significant abdominal pain. Review of Systems Review of Systems: Noncontributory. Exam Narrative: Physical exam reveals patient be alert. Vital signs stable. HEENT exam is unremarkable. Patient anicteric. Lungs are clear to auscultation and percussion. Heart without murmur. Abdomen bowel sounds present soft nontender. Objective Data Vital Signs Vital Signs: Vital Signs - 24 hr 08/24/21 07:42 08/24/21 14:00 08/24/21 20:32 Temperature 98.6 F 98.3 F Pulse Rate 65 57 L Respiratory Rate 16 16 Blood Pressure 132/89 129/84 Pulse Oximetry 100 99 Oxygen Delivery Room Air 08/24/21 20:00 08/25/21 05:19 Temperature 97.8 F Pulse Rate 57 L 69 Respiratory Rate 16 16 Blood Pressure 122/70 Pulse Oximetry 99 98 Oxygen Delivery Room Air Intake/Output Intake/Output: Intake & Output 08/22/21 08/23/21 08/24/21 08/25/21 23:59 23:59 23:59 23:59 Intake Total 3200 3620 3420 1000 Output Total 900 Balance 3200 2720 3420 1000 Meds/Results Medications: Active Medications Generic Name Dose Route Start Last Admin Trade Name Freq PRN Reason Stop Dose Admin Sodium Chloride 1,000 mls @ 125 mls/hr 08/20/21 21:10 08/25/21 02:04 Normal Saline Iv IV CONT 125 mls/hr .Q8H LAMONT Administration Ondansetron HCl 4 mg 08/21/21 00:45 08/24/21 11:33 Ondansetron Inj 4 Mg/2 Ml Vial IV PUSH 4 mg Q4H PRN Administration Nausea And Vomiting Pantoprazole Sodium 40 mg 08/23/21 21:00 08/24/21 20:20 Pantoprazole 40 Mg Tablet PO 40 mg Q12HR LAMONT Administration Radiology Results: ITS Impressions Abdomen Ultrasound 08/20/21 18:36 IMPRESSION: 1. Normal sonographic study of the gallbladder. Abdomen/Pelvis CT 08/20/21 19:01 IMPRESSION: 1. No CT correlate for the patient's symptoms. Abdomen X-Ray 08/22/21 15:31 IMPRESSION: NG tube, in good position. Hepatobiliary Scan Nuclear Medicine 08/23/21 15:06 IMPRESSION: 1. Normal hepatobiliary scintigraphy. Labs Labs: Laboratory Results - last 24 hr 08/24/21 21:26 Urine Test Negative Amg Follow-up Billing Inpatient Follow-up [id number] [facility]
[2021-08-25 07:37] LABS: Hematocrit 36.6 % (37.0-47.0); Hemoglobin 12.5 g/dL (12.0-15.0); Mean Corpuscular HGB Conc 34.2 g/dl (32-36); Mean Corpuscular Hemoglobin 28.3 pg (26-34); Mean Platelet Volume 10.6 fl (7.4-10.4); Platelet Count Result 297 k/mm3 (150-375); Red Blood Count 4.41 M/mm3 (4.2-5.4); Red Cell Distribution Width 12.7 % (11.5-14.5); White Blood Count 9.2 K/mm3 (4.5-10.0)
[2021-08-25 08:03] LABS: Alanine Aminotransferase 16 U/L (6-35); Albumin Level 4.3 g/dL (3.5-5.1); Alkaline Phosphatase 45 U/L (38-126); Anion Gap 14 mmol/L (8-16); Aspartate Amino Transferase 23 U/L (14-36); Bilirubin,Total 0.6 mg/dL (0.2-1.3); Blood Urea Nitrogen 6 mg/dL (7-17); Calcium 8.2 mg/dL (8.4-10.2); Carbon Dioxide 19 mmol/L (22-30); Chloride 104 mmol/L (98-107); Estimated CRCL calculation 99 ml/min; Estimated Glomerular Filt Rate > 60; Glucose 61 mg/dL (65-110); Potassium 2.9 mmol/L (3.4-5.0); Sodium 137 mmol/L (137-145)
[2021-08-25] MEDS: PANTOPRAZOLE 40 MG TABLET PO (08:06)
[2021-08-25 14:00] VITALS: BP 126/84; PULSE 71; RESP 16; TEMP 36.9; O2SAT 100
[2021-08-25] MEDS: POTASSIUM CHLORIDE 20 MEQ TABLET 40 MEQ PO (15:32)
== END 2021-08-25 17:05 | disposition home or self-care (01) | DRG 422 ==
LOC: ANHED 21:10 → ANH2MED 21:54
PROVIDERS: Emergency Medicine; Internal Medicine Gastroenterology; Nurse Practitioner Family; Physician Assistant; Admitting Provider Internal Medicine; Emergency Provider Emergency Medicine; PCP Emergency Medicine; Visit Provider Student in an Organized Health Care Education/Training Program
PROC: 0DJ08ZZ Inspection of Upper Intestinal Tract, Via Natural or Artificial Opening Endoscopic (ICD-10-PCS; CPT 43235; principal; 2021-08-23 12:30)
DX: E86.0 Dehydration (principal); R11.15 Cyclical vomiting syndrome unrelated to migraine; R11.2 Nausea with vomiting, unspecified; R10.9 Unspecified abdominal pain; Z20.822 Contact with and (suspected) exposure to COVID-19; Z82.49 Family history of ischemic heart disease and other diseases of the circulatory system; D64.9 Anemia, unspecified; D72.829 Elevated white blood cell count, unspecified; F12.90 Cannabis use, unspecified, uncomplicated; K25.3 Acute gastric ulcer without hemorrhage or perforation; K29.70 Gastritis, unspecified, without bleeding
CPT/HCPCS: 36415; 74176; 76705; 78227; 80053; 81001; 81025; 83690; 85025; 85027; 87081; 88305; 88342; 96361; 96365; 96366; 96367; 96368; 96372; 96375; 96376; 99285; A9270; A9537; C9113; C9803; G0378; G0379; J0131; J0500; J0744; J1200; J1885; J2405; J2704; J2765; J2805; J3010; J3480; J7030; J7120; U0003; U0005

== ENCOUNTER 2022-05-11 08:29 | Emergency (ER) | payer MEDICAID, SELFPAY ==
--- NOTE | ~2022-05-11 | CT_ITS ---
EXAMINATION: CT abdomen pelvis w con DATE: 05/11/2022 10:56 INDICATION: Epigastric pain and vomiting TECHNIQUE: Computed tomography (CT) of the abdomen and pelvis was performed with 100 cc Omnipaque 350 intravenous contrast. The dose-length product was 252.12 mGy-cm. Automated exposure control and iter ative reconstruction technique were employed. COMPARISON: CT dated 08/20/2021 FINDINGS: Lung bases are unremarkable. Heart size normal. No significant pleural or pericardial effus ion. Fatty infiltration of the liver. The spleen, pancreas, adrenal glands and kidneys are unremarkab le. Gallbladder is present. Nonobstructive bowel gas pattern. No free air or free fluid. The appendix is normal. No significant vascular abnormality. No lymphadenopathy. No acute osseous abnormality. IMPRESSION: 1. No acute abdominal abnormality. Reviewed, dictated and finalized at location B. [facility]
[2022-05-11 08:30] VITALS: BP 125/100; PULSE 80; RESP 18; TEMP 36.4; O2SAT 100
[2022-05-11 09:00] VITALS: BP 120/90; PULSE 80; RESP 16; O2SAT 100
[2022-05-11 09:42] LABS: Appearance Urine Clear (Clear); Bilirubin Urine Negative (Negative); Blood Urine 3+ (Negative); Color Urine Yellow (Yellow); Glucose Urine UA Negative (Negative); Ketones Urine 3+ mg/dL (Negative); Leukocyte Esterase Ur Negative LEU/UL (Negative); Nitrate Urine Negative (Negative); Protein Urine Trace mg/dL (Negative); Urobilinogen Urine 0.2 mg/dL (<2.0); pH Urine >=9.0 (5.0-9.0)
[2022-05-11 09:43] LABS: Add Urine Microscopic? YES; Mucus Urine Rare /lpf; Squamous Epithelial Cell Urine Occasional /hpf (Few)
--- NOTE | 2022-05-11 09:43 | ED.NAVMDI ---
HPI - Nausea/Vomiting/Diarrhea General Chief complaint: Nausea/Vomiting/Diarrhea Stated complaint: N/V, stomach ulcers Time Seen by Provider: 05/11/22 09:12 Source: patient Mode of arrival: ambulatory Limitations: no limitations History of Present Illness HPI Narrative: This is a 22-year-old female that presents to the emergency department for nausea and vomiting. Ongoing since last night. Associated with epigastric abdominal pain which is achy in nature. Reports she has known history of gastric ulcers. She has not been taking her PPI over the last month. She also turned 22 over the weekend and had drank some alcohol. She has been having some diarrhea. Reports she saw gastroenterology, Dr. Fernandez, for her ulcers and was supposed to have a repeat EGD to ensure healing, but has not done this yet. Denies fevers, hematochezia, or melena. Related Data Allergies Allergy/AdvReac Type Severity Reaction Status Date / Time amoxicillin [From Augmentin] Allergy Hives Verified 05/11/22 08:35 clavulanic acid Allergy Hives Verified 05/11/22 08:35 [From Augmentin] Review of Systems Review of Systems: CONSTITUTIONAL: Denies fever GASTROINTESTINAL: Reports abdominal pain, nausea, vomiting, and diarrhea. GENITOURINARY: Denies dysuria All systems reviewed & are unremarkable except as noted in HPI and below PMFSH Past Medical History Medical History (Updated 05/11/22 @ 14:50 by Imani Washington PA-C) Cyclic vomiting syndrome Gastric ulcer Surgical History Surgical History No pertinent past surgical history Family History Family History (Updated 08/20/21 @ 22:56 by Cierra Greene RN) Grandparent Heart attack Cerebrovascular accident Hypertension Social History Social History Social History: Surrogate decision maker: Sonja Gomez, grandmother. Code status: Full code. Smoking status: Never smoker Second hand tobacco smoke exposure: Yes Alcohol intake: current Drinks per week: 1 Substance use: former Substance use type: marijuana Other substance usage details: Marijuana daily. Additional living arrangements comments: The patient lives with her boyfriend and his family in [place]. 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 Spiritual care concerns: No Exam Narrative: GENERAL: Well-appearing, well-nourished, and in no acute distress. HEAD: Normocephalic, atraumatic. EYES: EOMI. ENT: Nares clear, no rhinorrhea or epistaxis. Mucous membranes moist. CHEST: Clear to auscultation. No respiratory distress. No wheezes rales or rhonchi HEART: Regular rate and rhythm. No murmur heard. Normal peripheral pulses. ABDOMEN: Soft, nondistended, normal active bowel sounds. Mild tenderness to palpation in the epigastrium, without guarding EXTREMITIES: Normal range of motion. No edema. SKIN: Warm, dry, no rash. NEURO: No focal deficits. Alert and oriented x3. PSYCH: Normal mood and affect Course Course Emergency Course: Patient updated on work-up. Resting comfortably. Able to tolerate p.o. challenge Vital Signs Vital signs: Vital Signs Temperature 97.6 F 05/11/22 08:30 Pulse Rate 80 05/11/22 08:30 Respiratory Rate 18 05/11/22 08:30 Blood Pressure 125/100 H 05/11/22 08:30 Pulse Oximetry 100 05/11/22 08:30 Oxygen Delivery Room Air 05/11/22 08:30 Temperature 97.6 F 05/11/22 08:30 Pulse Rate 80 05/11/22 08:30 Respiratory Rate 18 05/11/22 08:30 Blood Pressure 125/100 H 05/11/22 08:30 Pulse Oximetry 100 05/11/22 08:30 Oxygen Delivery Room Air 05/11/22 08:30 MDM - Nausea/Vomiting/Diarrhea MDM Narrative Medical decision making narrative: Patient presents to the emergency department for nausea and vomiting. Ongoing since last night. Has known history of peptic ulcer disease. Reports she is supposed to be on a PPI,
[2022-05-11 09:47] LABS: Albumin Level 5.3 g/dL (3.5-5.1); Alkaline Phosphatase 70 U/L (38-126); Anion Gap 17 mmol/L (8-16); Aspartate Amino Transferase 30 U/L (14-36); Bilirubin,Total 0.6 mg/dL (0.2-1.3); Blood Urea Nitrogen 8 mg/dL (7-17); Calcium 9.7 mg/dL (8.4-10.2); Carbon Dioxide 18 mmol/L (22-30); Chloride 103 mmol/L (98-107); Estimated CRCL calculation 113 ml/min; Estimated Glomerular Filt Rate > 60; Glucose 160 mg/dL (65-110); Lipase 42 U/L (23-300); Potassium 3.5 mmol/L (3.4-5.0); Sodium 138 mmol/L (137-145)
[2022-05-11 09:53] LABS: Alanine Aminotransferase 35 U/L (6-35)
[2022-05-11 10:10] LABS: Basophils Percent Auto 0.3 % (0.2-1.2); Eosinophils Percent Auto 0.1 % (0-4.4); Hematocrit 37.5 % (37.0-47.0); Hemoglobin 12.7 g/dL (12.0-15.0); Immature Granulocyte Absolute 0.07 K/mm3 (0.00-0.031); Immature Granulocyte Percent A 0.4 % (0-0.5); Lymphocytes Absolute Auto 0.97 K/mm3 (0.9-3.2); Lymphocytes Percent Auto 6.1 % (18.3-44.2); Mean Corpuscular HGB Conc 33.9 g/dl (32-36); Mean Corpuscular Hemoglobin 29.2 pg (26-34); Mean Corpuscular Volume 86.2 fl (80-100); Mean Platelet Volume 11.3 fl (7.4-10.4); Monocytes Absolute Auto 0.3 K/mm3 (0.1-0.6); Monocytes Percent Auto 1.8 % (2.6-8.5); Neutrophils Absolute Auto 14.6 K/mm3 (1.3-6.7); Neutrophils Percent Auto 91.3 % (45.5-73.1); Platelet Count Result 301 k/mm3 (150-375); Red Blood Count 4.35 M/mm3 (4.2-5.4); Red Cell Distribution Width 12.9 % (11.5-14.5)
[2022-05-11 10:21] LABS: Influenza A QL RT-PCR Negative (Negative); Influenza B QL RT-PCR Negative (Negative); SARS-CoV-2 RNA PCR Negative
[2022-05-11 10:40] LABS: Hemoglobin A1C 5.2 % (<5.7)
[2022-05-11] MEDS: SODIUM CHLORIDE 0.9% IV 1,000 ML 999 ML IV CONT ×2 (10:41)
[2022-05-11] MEDS: PANTOPRAZOLE SODIUM IV 40 MG VIAL IV PUSH (10:41)
[2022-05-11] MEDS: ONDANSETRON INJ 4 MG/2 ML VIAL IV PUSH (10:41)
[2022-05-11 11:00] VITALS: BP 126/90; PULSE 82; RESP 16; O2SAT 98
[2022-05-11] MEDS: diphenhydrAMINE HCl INJ 50 MG/ML VIAL 25 MG IV PUSH (12:51)
[2022-05-11] MEDS: METOCLOPRAMIDE HCL INJ 10 MG/2 ML VIAL IV PUSH (12:52)
[2022-05-11 14:00] VITALS: BP 118/89; PULSE 84; RESP 16; O2SAT 98
[2022-05-11 14:38] LABS: Anion Gap 10 mmol/L (8-16); Blood Urea Nitrogen 6 mg/dL (7-17); Calcium 8.1 mg/dL (8.4-10.2); Carbon Dioxide 18 mmol/L (22-30); Chloride 107 mmol/L (98-107); Estimated CRCL calculation 113 ml/min; Estimated Glomerular Filt Rate > 60; Glucose 131 mg/dL (65-110); Potassium 3.6 mmol/L (3.4-5.0); Sodium 135 mmol/L (137-145)
[2022-05-11 16:20] VITALS: BP 118/95; PULSE 82; RESP 16
== END 2022-05-11 16:20 | disposition home or self-care (01) ==
PROVIDERS: Emergency Medicine; Emergency Provider Physician Assistant; PCP Emergency Medicine
DX: E86.0 Dehydration (principal); R11.2 Nausea with vomiting, unspecified; Z20.822 Contact with and (suspected) exposure to COVID-19; Z87.11 Personal history of peptic ulcer disease
CPT/HCPCS: 36415; 74177; 80048; 80053; 81001; 81025; 83036; 83690; 85025; 87636; 96361; 96365; 96375; 99284; C9113; J0131; J1200; J2405; J2765; J7030; Q9967

== ENCOUNTER 2024-11-19 09:47 | Emergency (ER) | payer MEDICAID, SELFPAY ==
--- NOTE | ~2024-11-19 | US_ITS ---
EXAM: US OB <=14 wk fetus w TV - 11/19/2024 12:58 CDT History: 24 years old Female with early preg, bleeding, LLQ cramping Comparison: None available. Technique Real time scanning of the pelvis was performed. Findings The uterus measures 7.1 x 2.7 x 4.5 cm. No focal myometrial abnormality is seen. Endometrium is grossly unremarkable. The endometrial stripe measures 6 mm. No gestational sac or intrauterine seen. The right ovary measures 3.3 x 1.6 x 1.6 cm. The left ovary measures 2.8 x 1.3 x 1.2 cm. Both ovaries appear grossly unremarkable and have intact blood flow. There is small amount of free fluid in the cul-de-sac, likely physiologic. Impression: No intrauterine gestational sac or intrauterine seen. Ectopic cannot be entirely excluded. Correlate with beta hCGs. Reviewed, dictated and finalized at location N. Impression: No intrauterine gestational sac or intrauterine seen. Ectopic pregnan cy cannot be entirely excluded. Correlate with beta hCGs.
[2024-11-19 09:57] VITALS: BP 156/89; PULSE 79; RESP 16; TEMP 37.1; O2SAT 100
[2024-11-19 11:38] LABS: BEDSIDEPREGUCG Positive (Negative)
[2024-11-19 12:02] LABS: Hematocrit 40.1 % (37.0-47.0); Hemoglobin 13.0 g/dL (12.0-15.0); Immature Granulocyte Percent A 0.4 % (0-0.5); Lymphocytes Absolute Auto 2.17 K/mm3 (0.9-3.2); Mean Corpuscular HGB Conc 32.4 g/dl (32-36); Mean Corpuscular Hemoglobin 28.3 pg (26-34); Mean Corpuscular Volume 87.2 fl (80-100); Nucleated Red Blood Cells Absolute Auto 0.000 K/mm3 (0.0-0.012); Nucleated Red Blood Cells Perc 0.0 % (0.0-0.2); Platelet Count Result 316 k/mm3 (150-375); Red Blood Count 4.60 M/mm3 (4.2-5.4); White Blood Count 7.6 K/mm3 (4.5-10.0)
[2024-11-19 12:02] LABS: Appearance Urine Turbid (Clear)
[2024-11-19 12:03] LABS: Add Urine Microscopic? YES
[2024-11-19 12:19] LABS: Alanine Aminotransferase 12 U/L (6-35); Albumin Level 4.7 g/dL (3.5-5.1); Alkaline Phosphatase 54 U/L (38-126); Anion Gap 8 mmol/L (4-12); Aspartate Amino Transferase 20 U/L (14-36); Bilirubin,Total 0.3 mg/dL (0.2-1.3); Blood Urea Nitrogen 4 mg/dL (7-17); Calcium 9.4 mg/dL (8.4-10.2); Carbon Dioxide 26 mmol/L (22-30); Chloride 104 mmol/L (98-107); Estimated CRCL calculation 95 ml/min; Estimated Glomerular Filt Rate > 60; Glucose 99 mg/dL (65-110); Potassium 3.4 mmol/L (3.4-5.0); Sodium 138 mmol/L (137-145); Total Protein 8.2 g/dL (6.3-8.2)
[2024-11-19 12:20] LABS: INR 1.1; Prothrombin Time 14.4 Seconds (11.1-14.7)
[2024-11-19 12:21] LABS: Partial Thromboplastin Time 32.4 Seconds (22.3-36.8)
--- NOTE | 2024-11-19 12:30 | ED_ITS ---
HPI - Female Genitourinary General Chief complaint: Vaginal Bleeding Stated complaint: abd pain, bleeding, preg? Time Seen by Provider: 11/19/24 10:48 Source: patient Mode of arrival: ambulatory Limitations: no limitations History of Present Illness HPI Narrative: Patient is a 24 y/o female who presents to the ED with c/o possible and vaginal bleeding. Patient reports her LNMP was 10/18/2024. Typically has regular cycles. States she was feeling slightly unwell last week and took a test at home, which was positive. Hx of 1 previous in 2019 with subsequent medical . She does not currently have an OBGYN. States today she began having light vaginal bleeding and lower abd cramping. Prompted here for further evaluation. Related Data Allergies Allergy/AdvReac Type Severity Reaction Status Date / Time amoxicillin (From Augmentin) Allergy Hives Verified 05/11/22 08:35 clavulanic acid (From Allergy Hives Verified 05/11/22 08:35 Augmentin) Review of Systems 2 Review of Systems: All systems reviewed & are unremarkable except as noted in HPI. All systems reviewed & are unremarkable except as noted in HPI and below PMFSH Past Medical History Medical History (Updated 11/19/24 @ 14:32 by Mariella Diaz PA-C) Threatened miscarriage Gastric ulcer Cyclic vomiting syndrome Surgical History Surgical History No pertinent past surgical history Family History Family History Grandparent Heart attack Cerebrovascular accident Hypertension Social History Social History Social History: Surrogate decision maker: Sonja Jason, grandmother. Code status: Full code. Smoking status: Never smoker Second hand tobacco smoke exposure: Yes Alcohol intake: current Drinks per week: 1 Substance use: former Substance use type: marijuana Other substance usage details: Marijuana daily. Additional living arrangements comments: The patient lives with her boyfriend and his family in [place]. 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 Spiritual care concerns: No Exam 2 Narrative: GENERAL: Well appearing, well-nourished, non-toxic, in no acute distress. HEAD: Normocephalic, atraumatic. RESPIRATORY: Airway patent, respirations nonlabored. Clear to auscultation bilaterally, no rales, rhonchi, wheezing. CARDIOVASCULAR: Regular rate and rhythm without murmurs, rubs, or gallops. ABDOMINAL: Soft, minimal tenderness throughout left lower abdomen, nondistended. Normoactive BS. MUSCULOSKELETAL: Moves all extremities. No gross deformities. SKIN: Warm, dry, normal color. NEURO: A&O X3. Speech clear. PSYCHIATRIC: Appropriate mood and affect. Normal interaction. Course Vital Signs Vital signs: Vital Signs Temperature 98.8 F 11/19/24 09:57 Pulse Rate 79 11/19/24 09:57 Respiratory Rate 16 11/19/24 09:57 Blood Pressure 156/89 H 11/19/24 09:57 Pulse Oximetry 100 11/19/24 09:57 Temperature 98.2 F 11/19/24 13:58 Pulse Rate 87 11/19/24 13:58 Respiratory Rate 16 11/19/24 13:58 Blood Pressure 143/90 H 11/19/24 13:58 Pulse Oximetry 99 11/19/24 13:58 MDM - Female Genitourinary MDM Narrative Medical decision making narrative: Patient presented to ED with vaginal bleeding, positive test last week. . Vital signs are stable upon arrival, slightly hypertensive. Laboratory studies fairly unremarkable. No leukocytosis or anemia. Urine with evidence of RBC, no signs of infection. Urine test here was positive. Beta-hCG minimally elevated 47. Patient's blood type is O+, no indication for Rhogam. Ob ultrasound was obtained, no intrauterine findings, no evidence of ectopic. Discussed lab and imaging findings with patient. Advised she will need very close follow-up. 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 Patient is in agreement this plan. Given lab order sheet. Discussed strict return precautions, advised to continue her bleeding. Patient in agreement plan, feels comfortable going home. Discharged in stable condition. Medical Records Attestation: I reviewed the patient's medical records. Lab Data Attestation: I reviewed the patient's lab results. 11/19/24 11:43 11/19/24 11:43 Labs: Lab Results 11/19/24 11/19/24 11/19/24 Range/Units 11:33 11:36 11:43 WBC 7.6 (4.5-10.0) K/mm3 RBC 4.60 (4.2-5.4) M/mm3 Hgb 13.0 (12.0-15.0) g/dL Hct 40.1 (37.0-47.0) % MCV 87.2 (80-100) fl MCH 28.3 (26-34) pg MCHC 32.4 (32-36) g/dl RDW 13.0 (11.5-14.5) % Plt Count 316 (150-375) k/mm3 MPV 10.2 (7.4-10.4) fl Immature Gran % (Auto) 0.4 (0-0.5) % Neut % (Auto) 64.4 (45.5-73.1) % Lymph % (Auto) 28.5 (18.3-44.2) % [place] % (Auto) 5.3 (2.6-8.5) % Eos % (Auto) 0.7 (0-4.4) % Baso % (Auto) 0.7 (0.2-1.2) % Lymph # (Auto) 2.17 (0.9-3.2) K/mm3 [place] # (Auto) 0.4 (0.1-0.6) K/mm3 Eos # (Auto) 0.1 (0-0.3) K/mm3 Baso # (Auto) 0.1 (0.0-0.1) K/mm3 Abs Immat Gran (auto) 0.03 (0.00-0.031) K/mm3 Absolute Neuts (auto) 4.9 (1.3-6.7) K/mm3 Absolute Nucleated RBC 0.000 (0.0-0.012) K/mm3 Nucleated RBC % 0.0 (0.0-0.2) % PT 14.4 (11.1-14.7) Seconds INR 1.1 APTT 32.4 (22.3-36.8) Seconds Sodium 138 (137-145) mmol/L Potassium 3.4 (3.4-5.0) mmol/L Chloride 104 (98-107) mmol/L Carbon Dioxide 26 (22-30) mmol/L Anion Gap 8 (4-12) mmol/L BUN 4 L (7-17) mg/dL Creatinine 0.68 L (0.7-1.0) mg/dL Estim Creat Clear Calc 95 ml/min Estimated GFR > 60 (59 - ) Glucose 99 (65-110) mg/dL Calcium 9.4 (8.4-10.2) mg/dL Total Bilirubin 0.3 (0.2-1.3) mg/dL AST 20 (14-36) U/L ALT 12 (6-35) U/L Alkaline Phosphatase 54 (38-126) U/L Total Protein 8.2 (6.3-8.2) g/dL Albumin 4.7 (3.5-5.1) g/dL Beta HCG, Quant 47.57 mIU/ML Urine Color Red H (Yellow) Urine Appearance Turbid H (Clear) Urine pH TNP Ur Specific [place] TNP Urine Protein TNP Urine Glucose (UA) TNP Urine Ketones TNP Ur Blood (Man) TNP Urine Nitrate TNP Urine Bilirubin TNP Urine Urobilinogen TNP Leukocyte Esterase Rfl TNP Urine RBC >100 H (0-2) /hpf Urine WBC 0-5 (0-3) /hpf Ur Squamous Epith Cells Occasional (Few) /hpf Urine Bacteria Trace (None) /hpf POC Urine HCG, Qual Positive (Negative) Blood Type O Positive Antibody Screen Negative Screen Not Reportable Baby's Blood Type Not Reportable Baby's WILEY Not Reportable Doses of RhIg Required 0 Imaging Data Attestation: I personally reviewed and interpreted this imaging study as follows: Radiologist's impression: ITS Impressions Obstetrics Ultrasound 11/19/24 13:56 Impression: No intrauterine gestational sac or intrauterine seen. Ectopic cannot be entirely excluded. Correlate with beta hCGs. Discharge Plan Discharge Clinical Impression: Threatened miscarriage Patient Disposition: Home Condition: Stable Instructions: Antibiotic Form, Threatened Miscarriage (ED) Additional Instructions: You will need to follow-up with OBGYN for further evaluation. Call office make appointment. Obtain repeat blood hormone level in 48 hours, on , 11/21/2024. Follow-up with OB for further evaluation of this. You may take Tylenol as needed for cramping. Continue to monitor bleeding. Return to the ED if you experience worsening or severe bleeding (soaking through pads > 1 per hour), severe pain, unable to keep down food or drink, fevers, or any other symptoms of concern. Patient Language: Slovak Prescriptions: No Action ondansetron 4 mg tablet,disintegrating 4 mg PO Q4H Qty: 10 0RF Rx Instructions: 1st dose 1-2 hr before radiation pantoprazole [Protonix] 40 mg tablet,delayed release (DR/EC) 40 mg PO QAM 56 Days Qty: 56 0RF potassium chloride 20 mEq tablet,ER particles/crystals 20 meq PO DAILY Qty: 3 0RF pantoprazole [Protonix] 40 mg tablet,delayed release (DR/EC) 40 mg PO BID Qty: 60 0RF ondansetron 4 mg tablet,disintegrating 4 mg PO Q8H PRN (Reason: nausea and vomiting) Qty: 14 0RF pantoprazole 40 mg tablet,delayed release (DR/EC) 40 mg PO HS 28 Days Qty: 28 0RF Other Ambulatory Orders: Beta HCG Quantitative (Routine) Timeframe: [id number] Location: Determined by Patient Ordered By: Mariella Diaz Follow-up/Referrals: Rosendo Zelaya MD [Primary Care Provider, Family Practice] Willian Asencio MD [Physician, PROJECT DEVELOPMENT MANAGER] Referral Note: OBGYN Time of Disposition: 14:31
[2024-11-19 12:34] LABS: Beta HCG Quantitative 47.57 mIU/ML
[2024-11-19 13:58] VITALS: BP 143/90; PULSE 87; RESP 16; TEMP 36.8; O2SAT 99
== END 2024-11-19 14:42 | disposition home or self-care (01) ==
PROVIDERS: Emergency Provider Physician Assistant; PCP Emergency Medicine
DX: O20.0 Threatened abortion (principal); Z77.22 Contact with and (suspected) exposure to environmental tobacco smoke (acute) (chronic)
CPT/HCPCS: 36415; 76801; 76817; 80053; 81001; 81025; 84702; 85025; 85461; 85610; 85730; 86850; 86900; 86901; 99284

== ENCOUNTER 2024-11-21 13:18 | Outpatient (CLI) | payer MEDICAID, SELFPAY ==
[2024-11-21 14:47] LABS: Beta HCG Quantitative 8.77 mIU/ML
== END 2024-11-21 13:19 | disposition home or self-care (01) ==
PROVIDERS: PCP Emergency Medicine; Visit Provider Student in an Organized Health Care Education/Training Program
DX: O20.0 Threatened abortion (principal); Z3A.00 Weeks of gestation of pregnancy not specified
CPT/HCPCS: 36415; 84702